=== PATIENT | male | born 1940 | race Caucasian/White ===

== ENCOUNTER → 2016-05-19 | Outpatient (CLI) | payer MEDICARE ==
[2016-05-19 09:45] LABS: ALT 30 U/L (21-72); AST 23 U/L (17-59); Cholesterol 143 mg/dL (<200); HDL Cholesterol 33 mg/dL (40-60); Triglycerides 122 mg/dL (<150)
== END ==
LOC: LABWHC1 08:48
PROVIDERS: ATTEND Internal Medicine Cardiovascular Disease
DX: I25.10 Atherosclerotic heart disease of native coronary artery without angina pectoris (principal); E78.5 Hyperlipidemia, unspecified
CPT/HCPCS: 36415; 80061; 84450; 84460

== ENCOUNTER 2016-07-13 19:16 | Inpatient (IN) | payer MEDICARE ==
[2016-07-13 20:10] LABS: Basophils # (A) 0.1 k/uL (0-0.2); Basophils % (A) 1 %; CH 31.4; CHCM 33.8; Eosinophils # (A) 0.2 k/uL (0-0.7); Eosinophils % (A) 2 %; HCT 45.2 % (39.0-53.0); HDW 2.19; Luc # (Auto) 0.18; Luc % (Auto) 2; Lymphocytes # (A) 2.9 k/uL (1.0-4.8); Lymphocytes % (A) 34 %; MCHC 33.1 g/dL (31.0-37.0); MCV 93.5 fL (80.0-100.0); Mean Platelet Volume 7.1; Monocytes # (A) 0.5 k/uL (0-1.0); Monocytes % (A) 6 %; Neutrophils # (A) 4.7 k/uL (1.3-7.7); Neutrophils % (A) 55 %; RBC 4.83 m/uL (4.30-5.90); RDW 13.2 % (11.5-15.5); WBC 8.6 k/uL (3.8-10.6); WBC (Perox) 8.63
[2016-07-13 20:18] LABS: Partial Thromboplastin Time 22.3 sec (22.0-30.0)
[2016-07-13 20:24] LABS: ALT 24 U/L (21-72); AST 24 U/L (17-59); Alkaline Phosphatase 58 U/L (38-126); Anion Gap 10 mmol/L; Blood Urea Nitrogen 21 mg/dL (9-20); Calcium 9.6 mg/dL (8.4-10.2); Carbon Dioxide 24 mmol/L (22-30); Chloride 107 mmol/L (98-107); Glucose 127 mg/dL (74-99); Magnesium 1.8 mg/dL (1.6-2.3); Non-African American GFR(MDRD) >60 (>60 ml/min/1.73 sqM); Potassium 4.2 mmol/L (3.5-5.1); Sodium 141 mmol/L (137-145); Total Bilirubin 0.8 mg/dL (0.2-1.3); Total Protein 7.3 g/dL (6.3-8.2)
--- NOTE | 2016-07-13 20:27 | XR ---
EXAMINATION TYPE: XR chest 1V DATE OF EXAM: 07/13/2016 8:07 PM COMPARISON: 08/10/2015 HISTORY: Left-sided chest pain TECHNIQUE: Single frontal view of the chest is obtained. FINDINGS: There is no heart failure nor confluent pneumonic infiltrate. There are no hilar masses. C ostophrenic angles are clear. There are chest leads. IMPRESSION: No active cardiopulmonary disease. No change.
[2016-07-13 20:28] LABS: INR 1.1 (<1.1); Prothrombin Time 10.9 sec (9.0-12.0)
--- NOTE | 2016-07-13 20:47 | ED ---
Chest Pain HPI - General Chief Complaint: Chest Pain Stated Complaint: Chest Pain Time Seen by Provider: 07/13/16 19:30 Source: patient Mode of arrival: ambulatory Limitations: no limitations - History of Present Illness Initial Comments: This patient is a 75-year-old man who presents after he had an episode where his vision went dark and he felt lightheaded. The patient reports that he had been at the [employer] this evening. He stood up and started walking across the [employer] to exit and states that his vision went dark and he was not able to see well. He states this affected both eyes equally. It affected the entire visual field. The patient also did briefly have a sensation of pain to his left chest. He states that lasts just a few seconds at a time and that it has come a few times over the past few months. The patient states that the chest pain resolved nearly immediately. The vision also resolved. He states that he then drove himself back to [place] from the [employer] which was in [place]. He states that he did stop and get some fast food. He went home and ate, and then he came here to be evaluated. He states that he feels back at his baseline condition. MD Complaint: other Onset/Timin -: hour(s) Onset: during exertion Pain Location: left chest Pain Radiation: none Severity: mild Quality: sharp Consistency: now resolved, other Improves With: nothing Worsens With: nothing (60 seconds) Treatments Prior to Arrival: none - Related Data Home Medications Medication Instructions Recorded Confirmed Aspirin 81 mg PO DAILY 06/27/15 07/13/16 Nitroglycerin Sl Tabs [Nitrostat] 0.4 mg SUBLINGUAL Q5M PRN 06/27/15 07/13/16 Simvastatin [Zocor] 20 mg PO HS 06/27/15 07/13/16 Cholecalciferol [Vitamin D3] 2,000 unit PO HS 06/28/15 07/13/16 Fiber Tab 1 tab PO DAILY 06/28/15 07/13/16 Multivitamins, Thera [Multivitamin] 1 tab PO HS 06/28/15 07/13/16 Propranolol [Inderal] 20 mg PO BID 06/28/15 07/13/16 Previous Rx's Medication Instructions Recorded Omeprazole [PriLOSEC] 40 mg PO AC-BRKFST #14 cap 06/28/15 Allergies Allergy/AdvReac Type Severity Reaction Status Date / Time No Known Allergies Allergy Verified 07/13/16 20:27 Review of Systems ROS Statement: Those systems with pertinent positive or pertinent negative responses have been documented in the HPI. ROS Other: All systems not noted in ROS Statement are negative. Constitutional: Denies: fever, chills, weakness Eyes: Reports: as per HPI, vision change Respiratory: Denies: cough, dyspnea, wheezes Cardiovascular: Reports: as per HPI, chest pain. Denies: palpitations, dyspnea on exertion, orthopnea, edema, syncope Gastrointestinal: Denies: abdominal pain, nausea, vomiting, diarrhea Musculoskeletal: Denies: back pain Skin: Denies: rash Neurological: Denies: headache, weakness, numbness, paresthesias, confusion, abnormal gait EKG Findings - EKG Comments: EKG Findings:: The 12-lead EKG shows sinus rhythm rate of 60 bpm. The NE interval is 110 ms, consistent with short NE. QRS is 94 ms, QTC 426 ms. 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 - EKG Results: EKG: interpreted by KEISHA, sinus rhythm (Rate 60 bpm) Past Medical History Past Medical History: GERD/Reflux, Hyperlipidemia, Myocardial Infarction ([place]) Additional Past Medical History / Comment(s): aoritc aneusrym. Last Myocardial Infarction Date:: History of Any Multi-Drug Resistant Organisms: None Reported Past Surgical History: Heart Catheterization With Stent, Hernia Repair Additional Past Surgical History / Comment(s): Lt Knee Date of Last Stent Placement:: Past Psychological History: No Psychological Hx Reported Smoking Status: Never smoker Past Alcohol Use History: None Reported Past Drug Use History: None Reported General Exam Limitations: no limitations General appearance: alert, in no apparent distress Head exam: Present: atraumatic, normocephalic Eye exam: Present: normal appearance, PERRL, EOMI. Absent: scleral icterus, conjunctival injection ENT exam: Present: normal oropharynx Neck exam: Present: normal inspection, full ROM Respiratory exam: Present: normal lung sounds bilaterally. Absent: respiratory distress, wheezes, rales, rhonchi, stridor Cardiovascular Exam: Present: regular rate, normal rhythm, normal heart sounds. Absent: systolic murmur, diastolic murmur, rubs, gallop GI/Abdominal exam: Present: soft. Absent: distended, tenderness, guarding, rebound, mass Extremities exam: Present: normal inspection, normal capillary refill. Absent: pedal edema, calf tenderness Neurological exam: Present: alert, oriented X3, CN II-XII intact. Absent: motor sensory deficit Skin exam: Present: warm, dry, intact, normal color. Absent: rash Course Vital Signs 07/13/16 07/13/16 07/13/16 19:19 20:22 20:40 Temperature 97.6 F 97.9 F Pulse Rate 58 L 53 L Pulse Rate [ 59 L Left Sitting] Pulse Rate [ 60 Left Standing] Pulse Rate [ 60 Left Supine] Respiratory 18 18 16 Rate Blood Pressure 169/85 129/69 Blood Pressure 146/74 [Left Arm Sitting] Blood Pressure 148/78 [Left Arm Standing] Blood Pressure 139/71 [Left Arm Supine] O2 Sat by Pulse 100 98 99 Oximetry Disposition Clinical Impression: Transient visual loss of both eyes, Atypical chest pain Disposition: ADMITTED IP TO THIS HOSP Condition: Fair
[2016-07-13] MEDS ORDERED: ASPIRIN 325 MG TAB PO STA (20:51)
[2016-07-13] MEDS ORDERED: NITROGLYCERIN SL TABS 0.4 MG TAB SUBLINGUAL PRN (20:55)
--- NOTE | 2016-07-13 21:12 | CT ---
EXAMINATION TYPE: CT brain wo con DATE OF EXAM: 07/13/2016 8:57 PM COMPARISON: 06/25/2009 HISTORY: Syncopal episode today CT DLP: 1121 mGycm Automated exposure control for dose reduction was used. FINDINGS: There is cerebral cortical atrophy. There is no mass effect nor midline shift. There is no sign of in tracranial hemorrhage. The calvarium is intact. IMPRESSION: Cerebral atrophy. No acute intracranial abnormality. No significant change compared to old exam.
[2016-07-13] MEDS: SODIUM CHLORIDE 0.9% 1,000 ML IV SCH (21:41)
[2016-07-13] MEDS: PROPRANOLOL 20 MG TAB PO SCH (21:42)
[2016-07-13] MEDS: MULTIVITAMINS, THERA 1 EACH TAB PO SCH (21:42)
[2016-07-13] MEDS: CHOLECALCIFEROL 1,000 UNIT TAB PO SCH (21:42)
[2016-07-13] MEDS: DOCUSATE 100 MG CAP PO SCH (21:42)
[2016-07-13] MEDS: ATORVASTATIN 10 MG TAB PO SCH (21:43)
[2016-07-13] MEDS: FAMOTIDINE 20 MG TAB PO SCH (21:43)
[2016-07-14 00:22] VITALS: BMI 24.3
[2016-07-14 08:00] LABS: Cholesterol 123 mg/dL (<200); HDL Cholesterol 32 mg/dL (40-60); Triglycerides 73 mg/dL (<150)
[2016-07-14] MEDS: PANTOPRAZOLE 40 MG TABLET PO SCH (09:23)
[2016-07-14] MEDS: FAMOTIDINE 20 MG TAB PO SCH (09:30)
[2016-07-14] MEDS: PROPRANOLOL 20 MG TAB PO SCH ×2 (09:30→21:26)
[2016-07-14] MEDS: DOCUSATE 100 MG CAP PO SCH ×3 (09:30→23:02)
[2016-07-14] MEDS: ASPIRIN 325 MG TAB PO SCH (09:31)
--- NOTE | 2016-07-14 11:21 | P.CRDCN ---
History of Present Illness Consult date: 07/14/16 Requesting physician: Clif Dutta Consult reason: chest pain Chief complaint: Visual disturbance and near syncope History of present illness: This is a 75-year-old gentleman who follows regularly with Dr. Lopez in the office. He has a history of ischemic heart disease with prior stent placement, hyperlipidemia. He states that [place], on his way walking out, he states that he felt like he lost his vision completely and felt as though he may pass out. He denies any overt dizziness or feeling that things were spinning around him, but does feel that he could've passed out had he not held himself up. Patient also had a pain in the left side of his chest she describes as a sharp pain that lasted one to 2 seconds. He does get these pains off and on. According to the patient, he also feels that when he gets up from a sitting position to a standing position he becomes dizzy and feels like he may pass out. He denies any syncopal episodes, no stroke or seizure in the past. EKGon admission showed a normal sinus rhythm with no acute changes. Chest x-ray did not reveal any active cardiopulmonary disease. At scan of the brain was performed which revealed cerebral atrophy with no acute intracranial abnormality. Reticulocyte Doppler study was performed which is currently pending. CBC normal. Sodium 141 , potassium 4.2, BUN 21, creatinine 1.1, magnesium level I.8, troponins negative 3. Blood pressure on arrival 169/80 with a heart rate in the 50s. Time of my examination this morning, patient denies any dizziness or lightheadedness. No chest discomfort. Past Medical History Past Medical History: GERD/Reflux, Hyperlipidemia, Myocardial Infarction ([place]) Additional Past Medical History / Comment(s): aoritc aneusrym Last Myocardial Infarction Date:: 1998 History of Any Multi-Drug Resistant Organisms: None Reported Past Surgical History: Heart Catheterization With Stent, Hernia Repair Additional Past Surgical History / Comment(s): Lt Knee Past Anesthesia/Blood Transfusion Reactions: No Reported Reaction Date of Last Stent Placement:: 1998 Past Psychological History: No Psychological Hx Reported Smoking Status: Never smoker Past Alcohol Use History: None Reported Past Drug Use History: None Reported - Past Family History Mother Family Medical History: No Reported History Medications and Allergies Home Medications Medication Instructions Recorded Confirmed Type Aspirin 81 mg PO DAILY 06/27/15 07/13/16 History Nitroglycerin Sl Tabs [Nitrostat] 0.4 mg SUBLINGUAL Q5M PRN 06/27/15 07/13/16 History Simvastatin [Zocor] 20 mg PO HS 06/27/15 07/13/16 History Cholecalciferol [Vitamin D3] 2,000 unit PO HS 06/28/15 07/13/16 History Fiber Tab 1 tab PO DAILY 06/28/15 07/13/16 History Multivitamins, Thera [Multivitamin] 1 tab PO HS 06/28/15 07/13/16 History Propranolol [Inderal] 20 mg PO BID 06/28/15 07/13/16 History Allergies Allergy/AdvReac Type Severity Reaction Status Date / Time No Known Allergies Allergy Verified 07/13/16 20:27 Physical Exam Vitals: Vital Signs Temp Pulse Pulse Resp BP BP BP 07/14/16 08:00 52 L 16 119/59 07/14/16 04:00 53 L 18 117/63 07/14/16 00:09 96.2 F L 57 L 18 147/65 07/14/16 00:05 96.2 F L 57 L 18 147/65 07/13/16 23:35 98.0 F 50 L 18 125/59 07/13/16 21:25 69 129/61 Pulse Ox 07/14/16 08:00 98 07/14/16 04:00 07/14/16 00:09 97 07/14/16 00:05 97 07/13/16 23:35 96 07/13/16 21:25 99 Intake and Output 07/13/16 07/14/16 07/14/16 22:59 06:59 14:59 Intake Total 120 Balance 120 Intake: IV 120 Sodium Chloride 0.9% 1, 120 000 ml @ 20 mls/hr IV . Q24H [facility] Rx#:[id number] Other: # Voids 1 1 # Bowel Movements 0 Weight 70.7 kg PHYSICAL EXAMINATION: HEENT: Head is atraumatic, normocephalic. Pupils equal, round. Neck is supple. There is no elevated jugular venous pressure. HEART EXAMINATION: S1 and S2 systolic murmur is heard CHEST EXAMINATION: Lungs are clear to auscultation and precussion. No chest wall tenderness is noted on palpation or with deep breathing. ABDOMEN: Soft, nontender. Bowel sounds are heard. No organomegaly noted. EXTREMITIES: 2+ peripheral pulses with no evidence of peripheral edema and no calf tenderness noted. NEUROLOGIC patient is awake, alert and oriented -3. . Results 07/13/16 20:00 07/13/16 20:00 Cardiac Enzymes 07/14/16 07/14/16 Range/Units 01:50 07:27 Troponin I <0.012 <0.012 (0.000-0.034) ng/mL Lipids 07/14/16 Range/Units 07:27 Triglycerides 73 (<150) mg/dL Cholesterol 123 (<200) mg/dL HDL Cholesterol 32 L (40-60) mg/dL Current Medications Generic Name Dose Route Start Last Admin Trade Name Freq PRN Reason Stop Dose Admin Aspirin 325 mg 07/14/16 09:00 07/14/16 09:31 Aspirin PO 325 mg DAILY [facility] Administration Atorvastatin Calcium 10 mg 07/13/16 21:00 07/13/16 21:43 Lipitor PO 10 mg HS [facility] Administration Cholecalciferol 2,000 unit 07/13/16 21:00 07/13/16 21:42 Vitamin D3 PO 2,000 unit HS [facility] Administration Docusate Sodium 100 mg 07/14/16 00:00 07/14/16 09:30 Colace PO 100 mg Q8HR [facility] Administration Famotidine 20 mg 07/13/16 21:00 07/14/16 09:30 Pepcid PO 20 mg BID [facility] Administration Sodium Chloride 1,000 mls @ 20 mls/hr 07/13/16 21:00 07/13/16 21:41 Saline 0.9% IV 20 mls/hr .Q24H [facility] Administration Multivitamins 1 each 07/13/16 21:00 07/13/16 21:42 Theragran PO 1 each HS [facility] Administration Nitroglycerin 0.4 mg 07/13/16 20:55 Nitrostat SUBLINGUAL Q5M PRN Chest Pain Pantoprazole Sodium 40 mg 07/14/16 07:30 07/14/16 09:23 Protonix PO Not Given AC-BRKFST [facility] Propranolol HCl 20 mg 07/13/16 21:00 07/14/16 09:30 Inderal PO 20 mg BID [facility] Administration Intake and Output 07/13/16 07/14/16 07/14/16 22:59 06:59 14:59 Intake Total 120 Balance 120 Intake: IV 120 Sodium Chloride 0.9% 1, 120 000 ml @ 20 mls/hr IV . Q24H [facility] Rx#:[id number] Other: # Voids 1 1 # Bowel Movements 0 Weight 70.7 kg EKG Interpretations (text) EKG shows normal sinus rhythm with no acute changes. Assessment and Plan Plan: Assessment and Plan #1 symptoms of visual disturbance with near-syncope. CAT scan of the brain did not reveal any acute findings. #2 known history of coronary artery disease with prior stent placement #3 hyperlipidemia #4 GERD #5 atypical chest discomfort, troponins negative 3. EKG did not reveal any significant changes. Plan We will obtain an echocardiogram with Doppler study. We will also request orthostatic blood pressure and heart rate to be performed every shift to rule out any underlying orthostatic hypotension. Patient's chest pain is very atypical in nature, with negative Troponins 3. DNP note has been reviewed, I agree with a documented findings and plan of care. Patient was seen and examined.
--- NOTE | 2016-07-14 11:53 | US ---
EXAMINATION TYPE: US carotid duplex BILAT DATE OF EXAM: 07/14/2016 8:51 AM COMPARISON: NONE CLINICAL HISTORY: Stenosis. Vertigo EXAM MEASUREMENTS: RIGHT: Peak Systolic Velocity (PSV) cm/sec ----- Right CCA: 76.3 ----- Right ICA: 106.9 ----- Right ECA: 80.9 ICA/CCA ratio: 1.4 RIGHT: End Diastole cm/sec ----- Right CCA: 17.6 ----- Right ICA: 28.5 ----- Right ECA: 8.6 LEFT: Peak Systolic Velocity (PSV) cm/sec ----- Left CCA: 55.3 ----- Left ICA: 110.7 ----- Left ECA: 78.2 ICA/CCA ratio: 2.0 LEFT: End Diastole cm/sec ----- Left CCA: 14.7 ----- Left ICA: 30.6 ----- Left ECA: 6.6 VERTEBRALS (direction of flow): Right Vertebral: Antegrade Left Vertebral: Antegrade Atheromatous plaque present within the distribution of the carotid bulb on the left IMPRESSION: Mildly elevated ICA to CCA ratio on the left, no hemodynamic significant stenosis is ar pected however, CTA could be performed for increased sensitivity as indicated, carotid Doppler an ind irect measurement of carotid stenosis
--- NOTE | 2016-07-14 11:54 | P.HPIM ---
History of Present Illness 75-year-old male presented to the emergency room with complaints of near syncopal episode said his vision went dark and he had some chest pressure troponins have been negative 3 visual disturbances cleared Review of Systems Cardiovascular: Reports chest pain Neurological: Reports loss of vision, Reports syncope Past Medical History Past Medical History: GERD/Reflux, Hyperlipidemia, Myocardial Infarction ([place]) Additional Past Medical History / Comment(s): aoritc aneusrym Last Myocardial Infarction Date:: 1998 History of Any Multi-Drug Resistant Organisms: None Reported Past Surgical History: Heart Catheterization With Stent, Hernia Repair Additional Past Surgical History / Comment(s): Lt Knee Past Anesthesia/Blood Transfusion Reactions: No Reported Reaction Date of Last Stent Placement:: 1998 Past Psychological History: No Psychological Hx Reported Smoking Status: Never smoker Past Alcohol Use History: None Reported Past Drug Use History: None Reported - Past Family History Mother Family Medical History: No Reported History Medications and Allergies Home Medications Medication Instructions Recorded Confirmed Type Aspirin 81 mg PO DAILY 06/27/15 07/13/16 History Nitroglycerin Sl Tabs [Nitrostat] 0.4 mg SUBLINGUAL Q5M PRN 06/27/15 07/13/16 History Simvastatin [Zocor] 20 mg PO HS 06/27/15 07/13/16 History Cholecalciferol [Vitamin D3] 2,000 unit PO HS 06/28/15 07/13/16 History Fiber Tab 1 tab PO DAILY 06/28/15 07/13/16 History Multivitamins, Thera [Multivitamin] 1 tab PO HS 06/28/15 07/13/16 History Propranolol [Inderal] 20 mg PO BID 06/28/15 07/13/16 History Allergies Allergy/AdvReac Type Severity Reaction Status Date / Time No Known Allergies Allergy Verified 07/13/16 20:27 Physical Exam Vitals: Vital Signs Temp Pulse Pulse Resp BP BP BP 07/14/16 08:00 52 L 16 119/59 07/14/16 04:00 53 L 18 117/63 07/14/16 00:09 96.2 F L 57 L 18 147/65 07/14/16 00:05 96.2 F L 57 L 18 147/65 07/13/16 23:35 98.0 F 50 L 18 125/59 07/13/16 21:25 69 129/61 Pulse Ox 07/14/16 08:00 98 05/11/17 04:00 07/14/16 00:09 97 07/14/16 00:05 97 07/13/16 23:35 96 07/13/16 21:25 99 Intake and Output 07/13/16 07/14/16 07/14/16 22:59 06:59 14:59 Intake Total 120 Balance 120 Intake: IV 120 Sodium Chloride 0.9% 1, 120 000 ml @ 20 mls/hr IV . Q24H [facility] Rx#:[id number] Other: # Voids 1 1 # Bowel Movements 0 Weight 70.7 kg - Constitutional General appearance: average body habitus - EENT Eyes: PERRLA Ears: bilateral: normal - Neck Neck: normal ROM Carotids: negative: upstroke normal - Respiratory Respiratory: bilateral: CTA - Cardiovascular Rhythm: regular - Gastrointestinal General gastrointestinal: soft - Integumentary Integumentary: normal - Neurologic Neurologic: CNII-XII intact - Psychiatric Patient states he does have some memory loss with face recognition and short- term memory alert and orientated at this time Psychiatric: A&O x's 3, appropriate affect, intact judgment & insight Results CBC & Chem 7: 07/13/16 20:00 07/13/16 20:00 Labs: Abnormal Lab Results - Last 24 Hours (Table) 07/14/16 Range/Units 07:27 HDL Cholesterol 32 L (40-60) mg/dL Chest x-ray: report reviewed CT Scan - head: report reviewed Thrombosis Risk Factor Assmnt - Choose All That Apply Any of the Below Risk Factors Present?: No Other Risk Factors: Yes Each Risk Factor Represents 3 Points: Age 75 years or older Thrombosis Risk Factor Assessment Total Risk Factor Score: 3 Thrombosis Risk Factor Assessment Level: Moderate Risk Assessment and Plan Plan: Assessment Visual disturbance transient Atypical chest pain troponins negative 3 History of GERD Hyperlipidemia History of coronary artery disease with [place] and has had stents History of aortic aneurysm Plan Cardiology consultation Neurology consultation
--- NOTE | 2016-07-14 12:42 | ECHOF ---
Referral Reason:Thrombus MEASUREMENTS -------- HEIGHT: 170.2 cm WEIGHT: 70.3 kg BP: 117/63 RVIDd: 2.7 cm (< 3.3) IVSd: 0.9 cm (0.6 - 1.1) LVIDd: 5.3 cm (3.9 - 5.3) LVPWd: 1.0 cm (0.6 - 1.1) IVSs: 1.1 cm LVIDs: 4.3 cm LVPWs: 1.2 cm LA Diam: 3.3 cm (2.7 - 3.8) LAESV Index (A-L): 26.18 ml/m Ao Diam: 3.7 cm (2.0 - 3.7) AV Cusp: 2.2 cm (1.5 - 2.6) LA Diam: 3.5 cm (2.7 - 3.8) MV EXCURSION: 12.842 mm (> 18.000) MV EF SLOPE: 91 mm/s (70 - 150) EPSS: 0.9 cm MV E Richard: 0.72 m/s MV DecT: 187 ms MV A Richard: 0.64 m/s MV E/A Ratio: 1.14 AR PHT: 732 ms RAP: 5.00 mmHg RVSP: 35.33 mmHg FINDINGS -------- Sinus rhythm. This was a technically adequate study. Left ventricular wall thickness is normal. Overall left ventricular systolic function is low-normal with, an EF between 50 - 55 %. The right ventricle is normal in size and function. Normal LA size by volume 22+/-6 ml/m2. The right atrium is normal in size. Aortic valve is trileaflet and is mildly thickened. There is lqeg-fe-epegifjo aortic regurgitation. There is no evidence of aortic stenosis. The mitral valve leaflets are mildly thickened. Arli-mo-chlgnpeo mitral regurgitation is present. Mild tricuspid regurgitation present. There is no evidence of pulmonary hypertension. The right ventricular systolic pressure, as measured by Doppler, is 35.33mmHg. Pulmonic valve appears structurally normal. The aortic root size is normal. There is no pericardial effusion. CONCLUSIONS -------- 1. Sinus rhythm. 2. The aortic root size is normal. 3. There is no pericardial effusion. 4. Overall left ventricular systolic function is low-normal with, an EF between 50 - 55 %. 5. Normal LA size by volume 22+/-6 ml/m2. 6. Aortic valve is trileaflet and is mildly thickened. 7. There is egtu-zq-jakkyslb aortic regurgitation. 8. The mitral valve leaflets are mildly thickened. 9. Mild tricuspid regurgitation present. 10. There is no evidence of pulmonary hypertension. 11. The right ventricular systolic pressure, as measured by Doppler, is 35.33mmHg. CLOTHING PATTERN PREPARER: Deng Paez RDCS
[2016-07-14] MEDS ORDERED: RX INFO: IV CONTRAST WAS GIVEN 1 EACH MISC MISCELLANE PRN (19:37)
--- NOTE | 2016-07-14 20:49 | CT ---
EXAMINATION TYPE: CT angio neck DATE OF EXAM: 07/14/2016 8:17 PM COMPARISON: NONE HISTORY: Syncopal episode CT DLP: 265.3 mGycm Automated exposure control for dose reduction was used. TECHNIQUE: Performed with IV Contrast, patient injected with 65 mL of Omnipaque 350. There are 3-D post processed images.. FINDINGS: There is some plaque and calcification on the posterior wall of the left carotid artery bifurcation w ith narrowing of the distal common carotid artery close to 50%. The right carotid artery bifurcation is widely patent. There is bilateral flow in the vertebral arteries. There is normal branching pattern of the great vessels on the aortic arch. The proximal carotid arter ies are widely patent. The distal internal carotid arteries are widely patent.. There is no evidence of carotid dissection. 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 THERE IS NORMAL APPEARANCE OF THE RI GHT CAROTID ARTERY.
[2016-07-14] MEDS: MULTIVITAMINS, THERA 1 EACH TAB PO SCH (21:26)
[2016-07-14] MEDS: CHOLECALCIFEROL 1,000 UNIT TAB PO SCH (21:26)
[2016-07-14] MEDS: ATORVASTATIN 10 MG TAB PO SCH (21:27)
[2016-07-14] MEDS: SODIUM CHLORIDE 0.9% 1,000 ML IV SCH (21:27)
[2016-07-15 02:39] VITALS: RESP 18
[2016-07-15] MEDS: PANTOPRAZOLE 40 MG TABLET PO SCH (06:35)
--- NOTE | 2016-07-15 07:26 | CONS ---
DATE OF CONSULTATION: 07/14/2016 CHIEF COMPLAINT: Presyncopal spell. HISTORY OF PRESENT ILLNESS: The patient is a pleasant 75year old male who is being evaluated by the neurology service per the request of Dr. Dutta for presyncopal episode. The patient states that he was in the casino in [place] and while he was walking towards the exit, he became quite dizzy and he describes the dizziness as a lightheaded sensation. He also recalls a sudden onset of visual loss involving both eyes. His symptoms lasted several seconds and resolved spontaneously. [place] to [facility] Emergency Room. As mentioned above, his symptoms only lasted several seconds. He denies any previous symptoms similar to this. The patient states that he also felt some chest pain when the symptoms occurred, but this has also resolved. A CT scan of the brain was done in the emergency room which showed generalized atrophy. His carotid Doppler showed no hemodynamically significant stenosis but there was an increase in the ICA to CCA ratio. His comprehensive metabolic profile, CBC, and fasting lipid panel were reviewed and were all within normal limits. At the time of my evaluation, the patient is lying in his bed and appears to be in no acute distress. He denies any recurrence of his symptoms since his admission. He has been having some bradycardia since arriving to the medical floor reaching the low 50s. Cardiology has been consulted. PAST MEDICAL HISTORY: Gastroesophageal reflux disease, dyslipidemia, history of myocardial infarction, history of aortic aneurysm, history of coronary artery stent placements, and hernia repair. SOCIAL HISTORY: He denies any tobacco, alcohol or drug use. FAMILY HISTORY: Noncontributory. HOME MEDICATIONS: Reviewed in the chart. ALLERGIES: No known drug allergies. REVIEW OF SYSTEMS: CONSTITUTIONAL: Negative. EYES: As mentioned above. ENT: As mentioned above. CARDIOVASCULAR: As mentioned above. RESPIRATORY: Negative. NEUROLOGICAL: As mentioned above. He denies any lateralizing numbness or weakness. GASTROINTESTINAL: Positive for occasional heartburn. GENITOURINARY: Negative. PSYCHIATRIC: Negative. ENDOCRINE: Negative. MUSCULOSKELETAL: Positive for occasional joint pain. DERMATOLOGICAL: Negative. PHYSICAL EXAM: Vital signs show a temperature of 96.2, pulse 52, respirations 16, blood pressure 119/59. GENERAL APPEARANCE: The patient is a thin, elderly male who appears to be in no acute distress. HEENT: Normocephalic, atraumatic, no facial asymmetry is seen. Extraocular muscles are intact. Neck is supple with no masses felt. CARDIOVASCULAR: Bradycardic rate with a normal rhythm. ABDOMEN: Nontender, nondistended. Extremities showed no edema or clubbing. NEUROLOGICAL EXAM: The patient is alert, aware, and oriented x3. Speech and language are normal. Strength is full in all 4 extremities. Sensory exam was normal to light touch in all 4 extremities. Cranial nerve testing showed no facial asymmetry. No tremors or seizure-like activity is noticed. IMPRESSION: 1. Presyncopal episode with dizziness. 2. Transient visual changes. 3. Possible carotid stenosis. 4. Bradycardia. 5. Coronary artery disease with history of stent placement. RECOMMENDATIONS: The patient did have a presyncopal episode and this is likely cardiovascular in etiology. He has been having bradycardia since his admission and his pulse is 52 at the time of my evaluation. Cardiology has been consulted. Continue telemetry monitoring. Although his carotid Doppler showed no hemodynamically significant stenosis, there were elevated velocities seen and for this I will order a CT angiogram of the neck to check for more distal stenosis that could not be captured by the carotid Doppler. Continue aspirin and Lipitor. An EEG has been ordered. Continue neuro checks. I will continue to follow with you. Further recommendations to follow. Thank you for allowing me to participate in the care of your patient. If you have any questions, please feel free to contact me. KARRIE
[2016-07-15] MEDS: DOCUSATE 100 MG CAP PO SCH (10:06)
[2016-07-15] MEDS: PROPRANOLOL 20 MG TAB PO SCH (10:07)
[2016-07-15] MEDS: ASPIRIN 325 MG TAB PO SCH (10:07)
[2016-07-15 10:10] VITALS: TEMP 96.6
--- NOTE | 2016-07-15 14:21 | P.PN ---
Subjective Principal diagnosis: Near syncope This is a 75-year-old gentleman who follows regularly with Dr. Lopez in the office. He has a history of ischemic heart disease with prior stent placement, hyperlipidemia. He states that he was [place] the [place] in [place] of yesterday, on his way walking out, he states that he felt like he lost his vision completely and felt as though he may pass out. He denies any overt dizziness or feeling that things were spinning around him, but does feel that he could've passed out had he not held himself up. He denies any syncopal episodes, no stroke or seizure in the past. EKGon admission showed a normal sinus rhythm with no acute changes. Chest x-ray did not reveal any active cardiopulmonary disease. At scan of the brain was performed which revealed cerebral atrophy with no acute intracranial abnormality. Echocardiogram with Doppler study was performed which revealed an ejection fraction of 50-55% with mild to moderate aortic regurgitation. CTA of the neck was performed which reveals close to 50% stenosis at the left carotid artery bifurcation involving the aortic origin of the internal carotid artery and distal common carotid artery. Normal appearance of the right carotid artery. CT the brain did not reveal any acute intracranial abnormality. Objective - Vital Signs Vital signs: Vital Signs Temp 96.6 F L 07/15/16 08:00 Pulse 54 L 07/15/16 08:00 Resp 18 07/15/16 04:00 BP 170/70 07/15/16 08:00 Pulse Ox 97 07/15/16 08:00 Intake & Output 07/14/16 07/15/16 07/15/16 18:59 06:59 18:59 Intake Total 240 120 Output Total 275 300 Balance -275 -60 120 Weight 70.7 kg 69.1 kg Intake: IV 240 Sodium Chloride 0.9% 1, 240 000 ml @ 20 mls/hr IV . Q24H CHIQUITA Rx#:[id number] Oral 120 Output: Urine 275 300 Other: # Voids 1 2 1 # Bowel Movements 0 - Exam PHYSICAL EXAMINATION: HEENT: Head is atraumatic, normocephalic. Pupils equal, round. Neck is supple. There is no elevated jugular venous pressure. HEART EXAMINATION: S1 and S2 systolic murmur is heard CHEST EXAMINATION: Lungs are clear to auscultation and precussion. No chest wall tenderness is noted on palpation or with deep breathing. ABDOMEN: Soft, nontender. Bowel sounds are heard. No organomegaly noted. EXTREMITIES: 2+ peripheral pulses with no evidence of peripheral edema and no calf tenderness noted. NEUROLOGIC patient is awake, alert and oriented -3. - Labs CBC & Chem 7: 07/13/16 20:00 07/13/16 20:00 Assessment and Plan Plan: Assessment and Plan #1 symptoms of visual disturbance with near-syncope. CAT scan of the brain did not reveal any acute findings. CTA of the neck revealed close to 50% stenosis at the left carotid artery, normal-appearing right carotid artery. #2 known history of coronary artery disease with prior stent placement #3 hyperlipidemia #4 GERD #5 atypical chest discomfort, troponins negative 3. EKG did not reveal any significant changes. Plan EchoCardiogram with Doppler study revealed an ejection fraction of 50-55% with mild to moderate AI. Patient continues to have a heart rate in the low 50s which may be contributing to some of the symptoms, for this reason we will decrease his dose of beta shaheed and half. He does have a follow-up appointment with Dr. Lopez in the office on August 10 wich he has been instructed to keep. DNP note has been reviewed, I agree with a documented findings and plan of care. Patient was seen and examined.
[2016-07-15 15:12] VITALS: BP 127/61; PULSE 50
--- NOTE | 2016-07-15 20:34 | PN ---
CHIEF COMPLAINT: Pre-syncopal spell. HISTORY OF PRESENT ILLNESS: This is a pleasant 75-year-old male continuing to be evaluated by the neurology service for a pre-syncopal episode. He had an episode of dizziness and lightheadedness and possible visual loss in both eyes. It lasted for several seconds. He denies any symptoms previous to this. A CT scan of the brain showed generalized atrophy. Carotid Doppler showed no hemodynamically significant stenosis but an increased ICA:CCA ratio. A subsequent CTA showed 50% occlusion of the left carotid bifurcation. No stenosis on the right. Cardiology was consulted, and they have recommended reduction of his propranolol that he takes for tremors. He was noted to have some bradycardic episodes, likely contributing to his symptoms. Upon my exam, he is resting comfortably in bed in no acute distress. His symptoms have resolved. PHYSICAL EXAM: VITAL SIGNS: Temperature 96.2, pulse 52, respirations 16, blood pressure 119/59. GENERAL APPEARANCE: This is a thin elderly male in no acute distress. HEENT: Normocephalic, atraumatic. No facial asymmetry. Extraocular muscles are intact. Neck is supple without masses. CARDIOVASCULAR: Bradycardic rate with normal rhythm. ABDOMEN: Nontender, nondistended. NEUROLOGICAL EXAM: He is alert, awake and oriented x3. Speech and language are normal. Strength is full in all 4 extremities. There is no sensory deficit. No tremors or seizure-like activities are seen. IMPRESSION: 1. Pre-syncopal episode with dizziness. 2. Transient visual loss. 3. Carotid stenosis. 4. Bradycardia. 5. Coronary artery disease. 6. Benign essential tremors. RECOMMENDATION: This episode was likely cardiovascular in nature. Reduction of his Inderal should help with symptoms significantly. He may be placed on an alternative medicine to control his tremors; recommend Mysoline. He will follow up with Dr. Fuller. Continue aspirin and Lipitor. Barring any unforeseen abnormalities on his EEG, he is cleared from a neurological standpoint. I performed a history and physical examination of this patient and discussed the same with the dictator. I agree with the dictator's note. Any additional findings/opinions, etc. will be noted.
[2016-07-15] MEDS ORDERED: PROPRANOLOL 10 MG TAB PO SCH (21:00)
--- NOTE | 2016-07-16 11:22 | EEG ---
DATE OF SERVICE: 07/15/2016 REASON FOR TESTING: Dizziness and presyncopal episodes. AGE: 75Y DESCRIPTION OF THE PROCEDURE: This EEG was performed using a 21-channel digital electroencephalograph, following the international 10 - 20 system. DESCRIPTION OF THE RECORDING: From the beginning of the tracing, and with the patient's eyes closed, the background rhythm was mostly consisting of 8 to 9 Hz alpha frequency in the posterior occipital leads. No obvious asymmetry is seen. Photic stimulation was performed with a minimal driving response seen. No pathological waves were elicited. Occasional muscle and movement artifacts are seen. Hyperventilation was not performed. The patient remains awake throughout the tracing. No epileptiform discharges were seen. His EKG lead showed a regular rate and rhythm. INTERPRETATION: This awake EEG can be considered within normal limits. There was no asymmetry seen. No epileptiform discharges were noticed. The absence of epileptiform discharges does not rule out the diagnosis of epilepsy, therefore, clinical correlation is recommended.
--- NOTE | 2016-07-20 09:00 | DS ---
DATE OF ADMISSION: 07/13/2016 DATE OF DISCHARGE: 07/15/2016 DISCHARGE DIAGNOSES: 1. Near syncope with dizziness and visual distress due to cardiogenic, possibly due to bradycardia ( ). 2. Atypical chest pain. Rule out acute coronary artery syndrome. 3. Gastroesophageal reflux disease. 4. Hyperlipidemia. 5. History of coronary artery disease with myocardial infarction and had stents in the past. 6. History of an aortic aneurysm. HOSPITAL COURSE: Patient is a 75-year-old male, was admitted to the hospital with complaints of near syncope and dizziness and visual disturbance. It lasted for several seconds, no previous history of CVA in the past. CT of the brain showed generalized atrophy. Carotid duplex showed no hemodynamically significant stenosis but increased ICA to CCA ratio. Subsequent CT angiogram of the neck showed 50% occlusion of the left carotid bifurcation. No stenosis on the right. Cardiology has been consulted and due to bradycardia, propranolol dose has been reduced to 10 mg b.i.d. ( ) during the hospital stay, patient denied any evidence of nausea, vomiting, abdominal pain. No dizziness or lightheadedness. No further syncopal episodes noted in the hospital. The patient has been taking propranolol for essential tremors. Patient was advised to follow with Neurology and Primary Care Physician for outside medications for tremors if he continues to have symptoms. Otherwise, the patient is asymptomatic now and will be discharged home in stable condition. DISCHARGE PHYSICAL EXAMINATION: A 75-year-old male lying in the bed, awake, alert and oriented x3. Appears to be in no apparent distress. VITALS: Blood pressure is 127/61, pulse is 58, respiratory rate is 16, temperature afebrile, pulse ox 98% on room air. HEENT: Atraumatic, normocephalic. Neck is supple, no JVD. CVS EXAM: S1, S2 heard. No murmurs, no gallop, no rub. LUNGS: Bilateral air entry is present, no wheezing. No crackles, nonlabored breathing. ABDOMEN: Soft, nontender, bowel sounds are heard. WEB CONTENT WRITER: Awake, alert, oriented x3. No focal deficit. EXTREMITIES: No edema. Pulses palpable bilaterally, no clubbing or cyanosis. PSYCHIATRIC: Cooperative. LABORATORY DATA: Reviewed. The LDL is 76, HDL 32. Troponin x3 negative. CONSULTATION: Cardiology consultation and Neurology consultation. TESTS AND PROCEDURES: CT head, CT angio of the neck and carotid duplex as well as 2-D echocardiogram and chest x-ray and EKG which shows sinus bradycardia. Discharge medications include: 1. Aspirin 81 mg p.o. daily. 2. Nitroglycerin 0.4 mg sublingual q.5 minutes p.r.n. for chest pain. 3. Zocor 20 mg p.o. at bedtime. 4. Vitamin D3 two thousand units p.o. at bedtime. 5. Lortab 1 tablet p.o. daily. 6. Multivitamins 1 tablet p.o. at bedtime. Omeprazole 40 mg a.c. breakfast. 7. Propranolol 10 mg p.o. b.i.d. Patient will be discharged home in a stable condition. Heart-healthy diet and home with self-care. Follow with Dr. Clif Dutta in 1 to [address] Fuller, follow with Dr. Lopez. Time taken more than 35 minutes in counseling and coordination of care.
== END 2016-07-15 16:38 | disposition home or self-care (01) | DRG 312 ==
LOC: EC 19:16 → 6SEL 20:56
PROVIDERS: ADMIT Family Medicine; ATTEND Family Medicine
DX: R55 Syncope and collapse (principal); R00.1 Bradycardia, unspecified; I35.1 Nonrheumatic aortic (valve) insufficiency; I65.22 Occlusion and stenosis of left carotid artery; H53.129 Transient visual loss, unspecified eye; R07.89 Other chest pain; E78.5 Hyperlipidemia, unspecified; K21.9 Gastro-esophageal reflux disease without esophagitis; G25.0 Essential tremor; I25.2 Old myocardial infarction; I25.10 Atherosclerotic heart disease of native coronary artery without angina pectoris; Z95.5 Presence of coronary angioplasty implant and graft; Z86.79 Personal history of other diseases of the circulatory system; Z79.82 Long term (current) use of aspirin; Z79.899 Other long term (current) drug therapy
CPT/HCPCS: 36415; 70450; 70498; 71010; 80053; 80061; 83735; 84484; 85025; 85610; 85730; 93005; 93306; 93880; 95819; 99285

== ENCOUNTER → 2017-05-25 | Outpatient (CLI) | payer MEDICARE ==
[2017-05-25 09:58] LABS: ALT 22 U/L (21-72); AST 23 U/L (17-59); Cholesterol 141 mg/dL (<200); HDL Cholesterol 39 mg/dL (40-60); LDL Cholesterol,Calculated 87 mg/dL (0-99); Triglycerides 75 mg/dL (<150)
== END | disposition home or self-care (01) ==
LOC: LABWHC1 09:09
PROVIDERS: ATTEND Internal Medicine Cardiovascular Disease
DX: I25.10 Atherosclerotic heart disease of native coronary artery without angina pectoris (principal); E78.5 Hyperlipidemia, unspecified
CPT/HCPCS: 36415; 80061; 84450; 84460

== ENCOUNTER 2018-08-25 20:16 | Emergency (ER) | payer MEDICARE ==
[2018-08-25 20:24] VITALS: RESP 18; TEMP 98.6
--- NOTE | 2018-08-25 21:02 | ED ---
General Adult HPI - General Chief complaint: Recheck/Abnormal Lab/Rx Stated complaint: Hiccups Time Seen by Provider: 08/25/18 20:41 Source: patient Mode of arrival: ambulatory Limitations: no limitations - History of Present Illness Initial comments: Patient is a 77-year-old male presenting to emergency Department with complaints of hiccups 2 days. Patient admits to associated sore throat, slight cough. Patient's states the last time he had hiccups for 2 weeks and that was 2 years ago and he had pneumonia. Patient has prescription for Chlorpromazine for hiccups that he tried yesterday without success. Patient has been having hard time sleeping due to the hiccups. Patient denies chest pains, shortness of breath, nausea, vomiting, and abdominal pain. No other complaints at this time. - Related Data Home Medications Medication Instructions Recorded Confirmed Aspirin 81 mg PO DAILY 06/27/15 02/23/17 Nitroglycerin Sl Tabs [Nitrostat] 0.4 mg SUBLINGUAL Q5M PRN 06/27/15 02/23/17 Simvastatin [Zocor] 20 mg PO HS 06/27/15 02/23/17 Cholecalciferol [Vitamin D3 (25 2,000 unit PO HS 06/28/15 02/23/17 Mcg = 1000 Iu)] Fiber Tab 1 tab PO DAILY 06/28/15 02/23/17 Multivitamins, Thera [Multivitamin 1 tab PO HS 06/28/15 02/23/17 (formulary)] Previous Rx's Medication Instructions Recorded Omeprazole [PriLOSEC] 40 mg PO AC-BRKFST #14 cap 06/28/15 Propranolol [Inderal] 10 mg PO BID #60 tab 07/15/16 Amoxicillin/Potassium Clav 1 tab PO Q12HR #14 tab 02/17/17 [Augmentin 875-125 Tablet] Amoxicillin/Potassium Clav 1 tab PO Q12HR 10 Days #20 tab 02/23/17 [Augmentin 500-125 Tablet] chlorproMAZINE HCL [ChlorproMAZINE 25 mg PO Q4HR PRN #30 tablet 08/25/18 HCl] Allergies Allergy/AdvReac Type Severity Reaction Status Date / Time No Known Allergies Allergy Verified 08/25/18 20:22 Review of Systems ROS Statement: Those systems with pertinent positive or pertinent negative responses have been documented in the HPI. ROS Other: All systems not noted in ROS Statement are negative. Past Medical History Past Medical History: GERD/Reflux, Hyperlipidemia, Myocardial Infarction ([place]) Additional Past Medical History / Comment(s): aortic aneurysm-dr. shipley, hand tremors, tripped & fell 12-15, fx. nose & lip laceration Last Myocardial Infarction Date:: 1998 History of Any Multi-Drug Resistant Organisms: None Reported Past Surgical History: Heart Catheterization With Stent, Hernia Repair Additional Past Surgical History / Comment(s): Lt Knee arthroscopy Past Anesthesia/Blood Transfusion Reactions: No Reported Reaction Date of Last Stent Placement:: 1998 Past Psychological History: No Psychological Hx Reported Smoking Status: Never smoker Past Alcohol Use History: None Reported Past Drug Use History: None Reported - Past Family History Mother Family Medical History: No Reported History General Exam - General Exam Comments Initial Comments: GENERAL: Well-appearing, well-nourished and in no acute distress. Patient is hiccuping. HEAD: Atraumatic, normocephalic. EYES: Pupils equal round and reactive to light, extraocular movements intact, sclera anicteric, conjunctiva are normal. ENT: TMs normal, nares patent, oropharynx clear without exudates. Moist mucous membranes. NECK: Normal range of motion, supple without lymphadenopathy or JVD. LUNGS: Breath sounds clear to auscultation bilaterally and equal. No wheezes rales or rhonchi. HEART: Regular rate and rhythm without murmurs, rubs or gallops. ABDOMEN: Soft, nontender, normoactive bowel sounds. No guarding, no rebound. No masses appreciated. : Deferred EXTREMITIES: Normal range of motion, no pitting or edema. No clubbing or cyanosis. NEUROLOGICAL: Cranial nerves II through XII grossly intact. Normal speech, normal gait. PSYCH: Normal mood, normal affect. SKIN: Warm, Dry, normal turgor, no rashes or lesions noted. Limitations: no limitations Course Vital Signs 08/25/18 20:21 Temperature 98.6 F Pulse Rate 66 Respiratory 18 Rate Blood Pressure 119/68 O2 Sat by Pulse 98 Oximetry Medical Decision Making - Medical Decision Making Patient is a 77-year-old male with complaints of hiccups 2 days. Patient states he has had this before about 3 years ago where he had hiccups for 2 weeks straight. He did have pneumonia at that time. Patient admits to having a sore throat with slight cough but no other symptoms at this time. Patient is afebrile. Chest x-ray was within normal limits. No signs of pneumonia or any other acute abnormalities. Patient was given Reglan and Ativan in attempt to stop the hiccups. Patient states his hiccups have stopped. Patient will be discharged home and will follow up with PCP on Monday if they return. Patient was okay with this decision. Case discussed with . Disposition Clinical Impression: Hiccups Disposition: HOME SELF-CARE Condition: Stable Instructions (If sedation given, give patient instructions): Hiccups (ED) Additional Instructions: Please return to the Emergency Department if symptoms worsen or any other concerns. Follow up with PCP on Monday if hiccups returned. Prescriptions: chlorproMAZINE HCL [ChlorproMAZINE HCl] 25 mg PO Q4HR PRN #30 tablet PRN Reason: Per Protocol Is patient prescribed a controlled substance at d/c from ED?: No Referrals: Clif Dutta MD [Primary Care Provider] - 1-2 days
--- NOTE | 2018-08-25 21:12 | XR ---
EXAMINATION TYPE: XR chest 2V DATE OF EXAM: 08/25/2018 COMPARISON: 07/13/2016 HISTORY: Hiccups TECHNIQUE: Frontal and lateral views of the chest are obtained. FINDINGS: Heart and mediastinum are normal. Lungs are clear. Diaphragm is normal. Bony thorax appear s normal. IMPRESSION: Normal chest. No change.
[2018-08-25] MEDS ORDERED: METOCLOPRAMIDE 10 MG TAB PO STA (21:34)
[2018-08-25] MEDS ORDERED: LORazepam 1 MG TAB PO STA (22:07)
[2018-08-25 23:15] VITALS: BP 123/68; PULSE 72
[2018-08-26] MEDS ORDERED: METOCLOPRAMIDE 10 MG TAB PO SCH (07:30)
== END 2018-08-25 23:12 | disposition home or self-care (01) ==
LOC: EC 20:16
DX: R06.6 Hiccough (principal); R05 Cough; K21.9 Gastro-esophageal reflux disease without esophagitis; I25.2 Old myocardial infarction; Z79.82 Long term (current) use of aspirin; Z79.899 Other long term (current) drug therapy; Z95.5 Presence of coronary angioplasty implant and graft
CPT/HCPCS: 71046; 99283

== ENCOUNTER → 2018-10-19 | Outpatient (CLI) | payer MEDICARE ==
--- NOTE | 2018-10-20 10:20 | CT ---
EXAMINATION TYPE: CT soft tissue neck w con DATE OF EXAM: 10/19/2018 COMPARISON: None HISTORY: Throat pain and tightness. CT DLP: 490 mGycm CONTRAST: CT scan of the neck is performed with IV Contrast, patient injected with 80ml mL of Isovue 300. Contrast enhanced CT of the neck was performed from the skull base through the lung apices. AIRWAY: The supraglottic, glottic, and subglottic portions of the airway appear patent and free of mass. SALIVARY GLANDS: The submandibular and parotid glands are free of mass or inflammatory process. THYROID GLAND: No nodules or masses seen. LYMPH NODES: No adenopathy seen greater than 1cm. LUNG APICES: No nodule or mass is seen. OTHER: Vascular structures are patent. No significant degenerative change of the cervical spine. N o abscess seen. IMPRESSION: No distinct abnormality to account for the patient's symptoms.
== END | disposition home or self-care (01) ==
LOC: RADCTMAIN 16:20
PROVIDERS: ATTEND Otolaryngology
DX: R07.0 Pain in throat (principal)
CPT/HCPCS: 82565; 84520; 70491; 36415; Q9967

== ENCOUNTER → 2019-11-13 | Outpatient (CLI) | payer MEDICARE ==
[2019-11-13 10:25] LABS: Basophils % (A) 1 %; Eosinophils # (A) 0.2 k/uL (0-0.7); Eosinophils % (A) 3 %; HCT 41.2 % (39.0-53.0); Lymphocytes # (A) 1.9 k/uL (1.0-4.8); Lymphocytes % (A) 28 %; MCH 30.1 pg (25.0-35.0); MCHC 31.6 g/dL (31.0-37.0); MCV 95.2 fL (80.0-100.0); Mean Platelet Volume 7.2; Monocytes # (A) 0.4 k/uL (0-1.0); Monocytes % (A) 6 %; Neutrophils # (A) 4.2 k/uL (1.3-7.7); Neutrophils % (A) 61 %; Platelet Count 227 k/uL (150-450); RBC 4.33 m/uL (4.30-5.90); RDW 12.8 % (11.5-15.5); WBC 6.9 k/uL (3.8-10.6)
[2019-11-13 17:53] LABS: African American GFR (CKD) 65.3 (60.0-200.0); Albumin 3.7 g/dL (3.80-4.90); Albumin/Globulin Ratio 1.61 (1.60-3.17); BUN/Creat Ratio 14.17 Ratio (12.00-20.00); Calcium 9.2 mg/dL (8.7-10.3); Chol/HDL Ratio 3.97; Globulin 2.3 g/dL (1.6-3.3); Non-African American GFR(CKD) 56.4 (60.0-200.0); Potassium 4.4 mmol/L (3.5-5.5); Total Bilirubin 0.5 mg/dL (0.3-1.2)
== END | disposition home or self-care (01) ==
LOC: LABWHC1 09:07
PROVIDERS: ATTEND Family Medicine
DX: E78.5 Hyperlipidemia, unspecified (principal)
CPT/HCPCS: 36415; 80053; 80061; 84439; 84443; 85025

== ENCOUNTER → 2020-04-07 | Outpatient (CLI) | payer MEDICARE ==
[2020-04-07 15:00] LABS: Basophils # (A) 0.06 X 10*3/uL (0.00-0.10); Basophils % (A) 0.9 %; Eosinophils # (A) 0.23 X 10*3/uL (0.04-0.35); Eosinophils % (A) 3.3 %; HCT 40.3 % (39.6-50.0); HGB 13.4 g/dL (13.0-17.0); Lymphocytes # (A) 2.13 X 10*3/uL (0.90-5.00); Lymphocytes % (A) 30.9 %; MCH 31.2 pg (27.0-32.0); MCHC 33.3 g/dL (32.0-37.0); MCV 93.7 fL (80.0-97.0); Mean Platelet Volume 10.9 fL (9.5-12.2); Monocytes # (A) 0.59 X 10*3/uL (0.20-1.00); Monocytes % (A) 8.6 %; Neutrophils # (A) 3.87 X 10*3/uL (1.80-7.70); Neutrophils % (A) 56.2 %; Platelet Count 208 X 10*3/uL (140-440); WBC 6.89 X 10*3/uL (4.50-10.00)
[2020-04-07 15:20] LABS: African American GFR (CKD) 59.3 (60.0-200.0); Albumin 3.9 g/dL (3.80-4.90); Albumin/Globulin Ratio 1.95 (1.60-3.17); BUN/Creat Ratio 13.08 Ratio (12.00-20.00); Calcium 9.1 mg/dL (8.7-10.3); Chol/HDL Ratio 3.47; LDL Cholesterol,Calculated 71.8 mg/dL (0.0-131.0); Non-African American GFR(CKD) 51.2 (60.0-200.0); Potassium 4.3 mmol/L (3.5-5.5); Total Bilirubin 0.7 mg/dL (0.2-1.2); Total Protein 5.9 g/dL (6.2-8.2); VLDL Calculation 17.2 mg/dL (5.00-40.00)
[2020-04-07 15:27] LABS: Prostate Specific Antigen 2.6 ng/mL (0.0-6.5)
== END | disposition home or self-care (01) ==
LOC: LABWHC1 09:04
PROVIDERS: ATTEND Family Medicine
DX: E78.5 Hyperlipidemia, unspecified (principal); Z12.5 Encounter for screening for malignant neoplasm of prostate
CPT/HCPCS: 36415; 80053; 80061; 84153; 85025

== ENCOUNTER → 2020-04-30 | Outpatient (CLI) | payer MEDICARE ==
--- NOTE | 2020-04-30 14:20 | CT ---
EXAMINATION TYPE: CT brain wo/w con DATE OF EXAM: 04/30/2020 COMPARISON: CT brain February 17, 2017. MRI brain February 18, 2013. HISTORY: Headaches CT DLP: 2107 mGycm Automated exposure control for dose reduction was used. CONTRAST: CT scan of the head is performed without and with IV Contrast, patient injected with 80 mL of Isovue 300. FINDINGS: No acute intracranial hemorrhage or midline shift. Mild to moderate ventricular and sulcal prominence . Mild to moderate low-attenuation in the periventricular white matter . Postcontrast images show no suspicious enhancing mass. The globes are intact and the visualized sinuses are clear. Vascular calci fication distal vertebral and internal carotid arteries is redemonstrated. IMPRESSION: [id number] diffuse cerebral atrophy and chronic small vessel ischemic change redemo nstrated. No suspicious enhancement. No significant change from prior studies.
--- NOTE | 2020-04-30 14:46 | US ---
EXAMINATION TYPE: US carotid duplex BILAT DATE OF EXAM: 04/30/2020 COMPARISON: US 2017 CLINICAL HISTORY: I65.23 occlusions of bilateral. Headache EXAM MEASUREMENTS: RIGHT: Peak Systolic Velocity (PSV) cm/sec ----- Right CCA: 69.4 ----- Right ICA: 101.7 ----- Right ECA: 79.1 ICA/CCA ratio: 1.5 RIGHT: End Diastole cm/sec ----- Right CCA: 14.5 ----- Right ICA: 20.9 ----- Right ECA: 0.0 LEFT: Peak Systolic Velocity (PSV) cm/sec ----- Left CCA: 78.2 ----- Left ICA: 124.8 ----- Left ECA: 62.5 ICA/CCA ratio: 1.6 LEFT: End Diastole cm/sec ----- Left CCA: 16.8 ----- Left ICA: 32.5 ----- Left ECA: 0.0 VERTEBRALS (direction of flow): Right Vertebral: Antegrade Left Vertebral: Antegrade Rhythm: Normal IMPRESSION: Bilateral intimal thickening, plaque bilateral bulb, no elevated velocities, no signific ant stenosis. Criteria for Assigning % of Stenosis / Diameter reduction (Estimation based on the indirect measurements of the internal carotid artery velocities (ICA PSV). 1. Normal (no stenosis)=ICA PSV < 125 cm/s: ratio < 2.0: ICA EDV<40 cm/s. 2. Less than 50% stenosis=ICA PSV < 125 cm/s: ratio < 2.0: ICA EDV<40 cm/s. 3. 50 to 69% stenosis=ICA PSV of 125 to 230 cm/s: ration 2.0 ? 4.0: ICA EDV 40-100 cm/s. 4. Greater than 70% stenosis to near occlusion= ICA PSV > 230 cm/s: ratio > 4.0: ICA EDV > 100 cm/s. 5. Near occlusion= ICA PSV velocities may be low or undetectable: variable ratio and ICA EDV. 6. Total occlusion=unable to detect flow.
== END | disposition home or self-care (01) ==
LOC: RADCTMAIN 13:00
PROVIDERS: ATTEND Family Medicine
DX: I67.82 Cerebral ischemia (principal); G31.1 Senile degeneration of brain, not elsewhere classified; R93.0 Abnormal findings on diagnostic imaging of skull and head, not elsewhere classified; I65.23 Occlusion and stenosis of bilateral carotid arteries; R51.9 Headache, unspecified
CPT/HCPCS: 82565; 84520; 93880; 70470; 36415; Q9967

== ENCOUNTER → 2020-09-21 | Outpatient (CLI) | payer MEDICARE ==
--- NOTE | 2020-09-21 11:31 | XR ---
EXAMINATION TYPE: XR chest 2V DATE OF EXAM: 09/21/2020 COMPARISON: 08/25/2018 HISTORY: Short of breath TECHNIQUE: Frontal and lateral views of the chest are obtained. FINDINGS: There is no focal air space opacity, pleural effusion, or pneumothorax seen. The cardiac silhouette size is within normal limits. The osseous structures are intact. IMPRESSION: No acute cardiopulmonary process.
== END | disposition home or self-care (01) ==
LOC: RADXRMAIN 11:03
PROVIDERS: ATTEND Internal Medicine Cardiovascular Disease
DX: R06.02 Shortness of breath (principal)
CPT/HCPCS: 71046; 83880

== ENCOUNTER 2020-10-08 07:36 | Day surgery (SDC) | payer MEDICARE ==
[2020-10-06 10:31] VITALS: BMI 22.7
[~2020-10-08 07:36] MED LIST: ALPRAZolam 0.25 MG TAB PO PRN; ALPRAZolam 0.5 MG TAB PO PRN; ASPIRIN 325 MG TAB PO ONE; ATORVASTATIN 80 MG TAB PO ONE; NITROGLYCERIN SL TABS 0.4 MG TAB SUBLINGUAL PRN; SODIUM CHLORIDE 0.9% 1,000 ML in EMPTY BAG 1 BAG IV ONE
[2020-10-08 08:06] VITALS: RESP 18; TEMP 98
[2020-10-08 08:16] LABS: Basophils # (A) 0.1 k/uL (0-0.2); Basophils % (A) 1 %; Eosinophils # (A) 0.2 k/uL (0-0.7); Eosinophils % (A) 2 %; HCT 42.9 % (39.0-53.0); HGB 14.3 gm/dL (13.0-17.5); Lymphocytes # (A) 3.4 k/uL (1.0-4.8); Lymphocytes % (A) 29 %; MCHC 33.3 g/dL (31.0-37.0); MCV 96.1 fL (80.0-100.0); Mean Platelet Volume 7.2; Monocytes # (A) 0.7 k/uL (0-1.0); Monocytes % (A) 6 %; Neutrophils # (A) 7.1 k/uL (1.3-7.7); Neutrophils % (A) 60 %; Platelet Count 256 k/uL (150-450); RBC 4.46 m/uL (4.30-5.90); RDW 13.6 % (11.5-15.5); WBC 11.7 k/uL (3.8-10.6)
[2020-10-08] MEDS ORDERED: fentaNYL (PF) 50 MCG/ML 2 ML AMP ONE (08:29)
[2020-10-08 08:42] LABS: Calcium 9.8 mg/dL (8.4-10.2); Potassium 4.2 mmol/L (3.5-5.1)
[2020-10-08] MEDS ORDERED: IV FLUID CONTINUATION 950 ML IV ONE (09:01)
[2020-10-08] MEDS: BENZOCAINE SPRAY 1 CAN MUCOUS MEM ONE ×2 (09:04→09:21)
[2020-10-08] MEDS ORDERED: MIDAZOLAM 2 MG/2 ML VIAL IV ONE (09:25)
[2020-10-08] MEDS ORDERED: fentaNYL (PF) 50 MCG/ML 2 ML AMP IV ONE (09:25)
[2020-10-08] MEDS ORDERED: LIDOCAINE 1% INJ 10MG/ML (20 ML MDV) ONE (09:48)
[2020-10-08] MEDS ORDERED: HEPARIN SODIUM 1,000 UN/ML (10ML VL) ONE (09:48)
[2020-10-08] MEDS ORDERED: VERAPAMIL 2.5 MG/ML 2 ML AMP ONE (09:48)
[2020-10-08] MEDS ORDERED: LIDOCAINE 1% INJ 10MG/ML (20 ML MDV) SQ ONE (10:06)
[2020-10-08] MEDS ORDERED: IOPAMIDOL-370 125ML BTL INJ ONE (10:26)
[2020-10-08] MEDS ORDERED: IOPAMIDOL-370 50ML BTL INJ ONE (10:28)
[2020-10-08] MEDS ORDERED: SODIUM CHLORIDE 0.9% 1,000 ML IV SCH ×2 (10:30→10:45)
[2020-10-08] MEDS ORDERED: RX INFO: IV CONTRAST WAS GIVEN 1 EACH MISC MISCELLANE PRN (10:30)
--- NOTE | 2020-10-08 11:07 | P.TEE ---
Date of Procedure: 10/08/20 Preoperative Diagnosis: Severe aortic regurgitation and moderate mitral regurgitation and exertional shortness of breath Postoperative Diagnosis: Moderate aortic regurgitation and moderate mitral regurgitation Procedure(s) Performed: LUPE Description of Procedure(s): INDICATION: Aortic and mitral valve regurgitation CONSENT: Informed verbal consent is obtained from the patient and family PROCEDURE:. Patient was brought to the lab in a fasting state. He was prepped and draped in the usual fashion. Patient throat was sprayed with Hurricaine. A lubricated Omni probe was introduced into the oropharynx and was advanced into the esophagus . Multiple views were obtained. Patient tolerated the procedure well. Color, pulsed and continuous Doppler and also saline contrast bubble injection were performed. Patient tolerated the procedure well FINDINGS:. The aortic valve is tricuspid and opening normally. There is eccentric aortic regurgitation which appears be moderate in degree. The mitral valve showed central regurgitation with a PISA value of 0.5. This is sized to moderate mitral regurgitation. No clot in the left atrial appendage. No reversal of flow in the pulmonary veins. There is evidence of PFO, which appears to be small with a small plak-ff-scwek shunt. Injection of the saline contrast bubbles showed crossing of bubbles from the left side across interatrial septum. The left ventricular function appeared to be fair. There is mild plaque in the aorta. IMPRESSION: #1. Moderate aortic regurgitation. #2. Moderate mitral regurgitation #3. PFO which appears to be small with spontaneous shunt from left to right before. Mild plaque in the aorta. #5. Left ventricular function appeared within PLAN: Continued medical therapy. Further assessment with cardiac catheterization
--- NOTE | 2020-10-08 11:12 | P.CARDCATH ---
Date of Procedure: 10/08/20 Preoperative Diagnosis: Exertional shortness of breath and aortic and mitral valve regurgitation. History of coronary artery disease with previous stent placement Postoperative Diagnosis: Stable coronary artery disease with patent stents in the LAD. Moderate aortic regurgitation Procedure(s) Performed: Left heart catheterization with aortic root injection. No left ventriculography Description of Procedure: HISTORY: This is a 80-year-old gentleman with history of ischemic heart disease with previous stent placement who has been complaining of exertional shortness of breath. Patient's echo Cardigan showed moderate to severe aortic regurgitation and moderate mitral regurgitation. Patient is advised to have LUPE and cardiac catheterization for definite diagnosis CONSENT:I have discussed the risks, benefits and alternative therapies for the above-mentioned procedure and for both sedation/analgesia as well as necessary blood product administration, if indicated, as they pertain to this patient. The patient has indicated understanding and acceptance of the risks and procedures discussed. PROCEDURE: Patient was brought to the lab in a fasting state. Patient received IV sedation for the LUPE examination of 2 mg of Versed and 50 g of fentanyl. No further sedation was given for the cardiac cath.. The right groin is infiltrated with lidocaine and right femoral artery was entered using Seldinger technique. A 6-Nigerian catheter was left in place and selective coronary arteriography and aortic root injection was performed. Patient tolerated the procedure well. Femoral angiogram was performed and Angio-Seal was applied for hemostasis. No immediate complications were noted and patient was transferred to [facility] in a stable condition Conscious Sedation: Versed 0mg Fentanyl 0 g Duration 20minutes HEMODYNAMICS: The aortic pressure was 110/ 70. Left ankle end-diastolic pressure is about 15-17. There was no gradient across the aortic valve SELECTIVE CORONARY ARTERIOGRAPHY: LEFT MAIN: Normal length and free of occlusive disease THE LEFT ANTERIOR DESCENDING CORONARY ARTERY: . Good caliber vessel giving rise good-sized diagonal branch. It. The stents in the proximal mid LAD, a patent THE LEFT CIRCUMFLEX AND IS CORONARY ARTERY: . This is a good caliber vessel giving rise good-sized OM branch. There is mild diffuse disease without any significant focal stenosis THE RIGHT CORONARY ARTERY: . This is a dominant vessel giving rise to PDA and PLV. There is mild diffuse plaque without any significant focal disease LEFT VENTRICULOGRAPHY: Not performed AORTIC ROOT INJECTION: This was done in the left anterior oblique projection. This revealed evidence of 2-3+ aortic regurgitation FINAL IMPRESSION: #1. Moderate aortic regurgitation #2. Stable coronary artery disease with patent stents in the LAD PLAN: Continue maximal medical therapy and risk factor modification PROGNOSIS: Fair
[2020-10-08 15:28] VITALS: BP 104/56; PULSE 46
== END 2020-10-08 15:29 | disposition home or self-care (01) ==
LOC: CATHCVL 07:36
PROVIDERS: ATTEND Internal Medicine Cardiovascular Disease
DX: I08.0 Rheumatic disorders of both mitral and aortic valves (principal)
CPT/HCPCS: 93312; 93320; 93325; 93458; 93567; 80048; 85025; C1760; C1894 ×2; C1769 ×2; J2250; J2001; J3010; Q9967 ×2

== ENCOUNTER 2021-02-04 18:24 | Emergency (ER) | payer MEDICARE ==
[2021-02-04 18:34] VITALS: TEMP 97.8
[2021-02-04] MEDS ORDERED: SODIUM CHLORIDE 0.9% 1,000 ML IV ONE (22:24)
--- NOTE | 2021-02-04 22:32 | ED ---
URI HPI - General Chief Complaint: Upper Respiratory Infection Stated Complaint: cough/sob/fever Time Seen by Provider: 02/04/21 22:18 Source: patient Mode of arrival: ambulatory Limitations: no limitations - History of Present Illness Initial Comments: This patient is an 80-year-old man who presents with complaint of proximal to 6 days of cough and chills. The patient states that he had received influenza shot last week just prior to onset of symptoms. The patient does note that he had covid vaccine in April of this year. MD Complaint: cough Onset/Timin -: days(s) Severity: moderate Consistency: constant Improves With: nothing Worsens With: nothing Associated Symptoms: chills, cough Treatments Prior to Arrival: none - Related Data Home Medications Medication Instructions Recorded Confirmed Aspirin 81 mg PO DAILY 06/27/15 02/04/21 Nitroglycerin Sl Tabs [Nitrostat] 0.4 mg SUBLINGUAL Q5M PRN 06/27/15 02/04/21 Simvastatin [Zocor] 20 mg PO HS 06/27/15 02/04/21 Fiber Tab 2 tab PO DAILY 06/28/15 02/04/21 Multivitamins, Thera [Multivitamin 1 tab PO DAILY 06/28/15 02/04/21 (formulary)] Cholecalciferol [Vitamin D3 (25 50 mcg PO DAILY 02/04/21 02/04/21 Mcg = 1000 Iu)] Omeprazole 20 mg PO DAILY 02/04/21 02/04/21 Previous Rx's Medication Instructions Recorded Propranolol [Inderal] 10 mg PO BID #60 tab 07/15/16 Allergies Allergy/AdvReac Type Severity Reaction Status Date / Time No Known Allergies Allergy Verified 02/04/21 23:01 Review of Systems ROS Statement: Those systems with pertinent positive or pertinent negative responses have been documented in the HPI. ROS Other: All systems not noted in ROS Statement are negative. Constitutional: Reports: chills. Denies: fever ENT: Denies: throat pain, congestion Respiratory: Reports: cough. Denies: dyspnea, wheezes, hemoptysis Cardiovascular: Denies: chest pain, palpitations Gastrointestinal: Reports: nausea. Denies: abdominal pain, vomiting, diarrhea Genitourinary: Denies: dysuria, hematuria Musculoskeletal: Denies: back pain Skin: Denies: rash Neurological: Denies: headache, weakness, numbness Past Medical History Past Medical History: GERD/Reflux, Hyperlipidemia, Myocardial Infarction ([place]) Additional Past Medical History / Comment(s): aortic aneurysm-dr. shipley, hand tremors, Last Myocardial Infarction Date:: 1998 History of Any Multi-Drug Resistant Organisms: None Reported Past Surgical History: Heart Catheterization With Stent, Hernia Repair Additional Past Surgical History / Comment(s): Lt Knee arthroscopy Past Anesthesia/Blood Transfusion Reactions: No Reported Reaction Date of Last Stent Placement:: 1998 Past Psychological History: No Psychological Hx Reported Smoking Status: Never smoker Past Alcohol Use History: None Reported Past Drug Use History: None Reported - Past Family History Mother Family Medical History: No Reported History General Exam Limitations: no limitations General appearance: alert, in no apparent distress Head exam: Present: atraumatic, normocephalic Eye exam: Present: normal appearance. Absent: scleral icterus, conjunctival injection Neck exam: Present: normal inspection Respiratory exam: Present: normal lung sounds bilaterally. Absent: respiratory distress, wheezes, rales, rhonchi, stridor Cardiovascular Exam: Present: regular rate, normal rhythm, normal heart sounds. Absent: systolic murmur, diastolic murmur, rubs, gallop GI/Abdominal exam: Present: soft. Absent: distended, tenderness, guarding, rebound, rigid, mass Extremities exam: Present: normal inspection, normal capillary refill. Absent: pedal edema, calf tenderness Back exam: Present: normal inspection. Absent: CVA tenderness (R), CVA tenderness (L) Neurological exam: Present: alert Skin exam: Present: warm, dry, intact, normal color. Absent: rash Course Vital Signs 02/04/21 02/04/21 02/04/21 18:31 23:00 23:11 Temperature 97.8 F Pulse Rate 87 71 Respiratory 22 16 22 Rate Blood Pressure 108/67 113/61 O2 Sat by Pulse 94 L 94 L Oximetry 02/05/21 01:13 Temperature Pulse Rate 88 Respiratory 18 Rate Blood Pressure 124/78 O2 Sat by Pulse 94 L Oximetry Medical Decision Making - Lab Data Lab Results 02/04/21 Range/Units 18:37 Coronavirus (PCR) Detected A (Not Detectd) Disposition Clinical Impression: COVID Disposition: HOME SELF-CARE Condition: Fair Instructions (If sedation given, give patient instructions): Coronavirus Disease 2019 (COVID-19) Is patient prescribed a controlled substance at d/c from ED?: No Referrals: Clif Dutta MD [Primary Care Provider] - 1-2 days
[2021-02-04] MEDS ORDERED: SODIUM CHLORIDE 0.9% 50 ML IVPB ONE (23:00)
[2021-02-04] MEDS ORDERED: SOTROVIMAB (EUA) 500 MG in SODIUM CHLORIDE 0.9% 100 ML IVPB ONE (23:00)
--- NOTE | 2021-02-04 23:09 | XR ---
EXAMINATION TYPE: XR chest 2V DATE OF EXAM: 02/04/2021 COMPARISON: 09/21/2020 HISTORY: Short of breath TECHNIQUE: FINDINGS: There is no heart failure nor confluent pneumonic infiltrate. Costophrenic angles are clear . Heart size is normal. There are no hilar masses. Bony thorax is intact. IMPRESSION: No active cardiopulmonary disease. No change.
[2021-02-05 01:14] VITALS: BP 124/78; PULSE 88; RESP 18
== END 2021-02-05 01:14 | disposition home or self-care (01) ==
LOC: EC 18:24
DX: U07.1 COVID-19 (principal); E78.5 Hyperlipidemia, unspecified; I25.2 Old myocardial infarction; K21.9 Gastro-esophageal reflux disease without esophagitis; Z79.82 Long term (current) use of aspirin; Z79.899 Other long term (current) drug therapy
CPT/HCPCS: 87635; 71046; 99283; 96360; Q0247

== ENCOUNTER → 2021-08-05 | Outpatient (CLI) | payer MEDICARE ==
[2021-08-05 18:37] LABS: T4, Free (Free Thyroxine) 1.09 ng/dL (0.800-1.800)
== END | disposition home or self-care (01) ==
LOC: LABWHC1 11:57
PROVIDERS: ATTEND Psychiatry & Neurology Neurology
DX: R41.3 Other amnesia (principal); R63.4 Abnormal weight loss; R25.1 Tremor, unspecified
CPT/HCPCS: 36415; 82306; 82607; 84439; 84443

== ENCOUNTER → 2021-08-21 | Outpatient (CLI) | payer MEDICARE ==
--- NOTE | 2021-08-22 11:36 | MR ---
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 Cortical atrophy is again seen. There is no hemorrhage or hydroceph alus. Corpus callosum, pituitary, cervical medullary junction, cerebellopontine angles are within nor mal limits. There are expected vascular flow voids. Inflammatory change present in the mastoid air ce lls right greater than left, there is inflammatory change present within the sphenoid sinus, ethmoid air cells, maxillary sinuses with mucosal changes. The orbits show symmetric appearance. Scattered pe riventricular white matter hyperintensities are present, there is some confluent periventricular hype rintensity and inversion recovery T2-weighted sequences. Artifact present presumably due to dental amaral rdware. IMPRESSION: Age-related changes of atrophy and chronic small vessel ischemia. Inflammatory changes ma stoid air cells, sinuses.
== END | disposition home or self-care (01) ==
LOC: RADMRIMAIN 12:29
PROVIDERS: ATTEND Psychiatry & Neurology Neurology
DX: I67.82 Cerebral ischemia (principal); G46.3 Brain stem stroke syndrome; G31.9 Degenerative disease of nervous system, unspecified
CPT/HCPCS: 70551

== ENCOUNTER → 2021-12-28 | Outpatient (CLI) | payer MEDICARE ==
[2021-12-28 14:33] LABS: Basophils # (A) 0.09 X 10*3/uL (0.00-0.10); Basophils % (A) 1.3 %; Eosinophils # (A) 0.22 X 10*3/uL (0.04-0.35); Eosinophils % (A) 3.2 %; HCT 37.8 % (39.6-50.0); HGB 12.7 g/dL (13.0-17.0); Immature Grans, Automated 0.3 %; Lymphocytes # (A) 2.35 X 10*3/uL (0.90-5.00); Lymphocytes % (A) 34.3 %; MCH 31.2 pg (27.0-32.0); MCHC 33.6 g/dL (32.0-37.0); MCV 92.9 fL (80.0-97.0); Mean Platelet Volume 10.7 fL (9.5-12.2); Monocytes # (A) 0.56 X 10*3/uL (0.20-1.00); Monocytes % (A) 8.2 %; NRBC Per 100 WBC 0 /100 WBCS (0.0-0.0); Neutrophils # (A) 3.62 X 10*3/uL (1.80-7.70); Neutrophils % (A) 52.7 %; Platelet Count 206 X 10*3/uL (140-440); RBC 4.07 X 10*6/uL (4.40-5.60); RDW 13.2 % (11.5-14.5); WBC 6.86 X 10*3/uL (4.50-10.00)
[2021-12-28 14:36] LABS: ALT 14 U/L (10-49); AST 21 U/L (14-35); African American GFR (CKD) 53.5 (60.0-200.0); Albumin 3.7 g/dL (3.8-4.9); Albumin/Globulin Ratio 1.28 (1.60-3.17); Alkaline Phosphatase 59 U/L (41-126); BUN/Creat Ratio 12.21 Ratio (12.00-20.00); Blood Urea Nitrogen 17.1 mg/dL (9.0-27.0); Calcium 9.1 mg/dL (8.7-10.3); Chloride 108 mmol/L (96-109); Globulin 2.9 g/dL (1.6-3.3); Glucose 97 mg/dL (70-110); LDL Cholesterol,Calculated 74.9 mg/dL (0.0-131.0); Non-African American GFR(CKD) 46.1 (60.0-200.0); Potassium 4.3 mmol/L (3.5-5.5); Sodium 142 mmol/L (135-145); Total Protein 6.6 g/dL (6.2-8.2); VLDL Calculation 15.08 mg/dL (5.00-40.00)
== END | disposition home or self-care (01) ==
LOC: LABWHC1 09:06
PROVIDERS: ATTEND Internal Medicine Clinical Cardiac Electrophysiology
DX: I25.10 Atherosclerotic heart disease of native coronary artery without angina pectoris (principal); I42.9 Cardiomyopathy, unspecified
CPT/HCPCS: 36415; 80053; 80061; 85025

== ENCOUNTER → 2022-06-07 | Outpatient (CLI) | payer MEDICARE ==
--- NOTE | 2022-06-07 16:05 | CT ---
EXAMINATION TYPE: CT abdomen pelvis w con CT DLP: 536.60 mGycm, Automated exposure control for dose reduction was used. DATE OF EXAM: 06/07/2022 3:51 PM COMPARISON: Abdominal radiograph 05/12/2022. CLINICAL INDICATION:Male, 81 years old with history of R10.32 LEFT LOWER QUADRANT PAIN; LLQ pain x 1 month TECHNIQUE: Standard CT of the abdomen and pelvis following the administration of 70 cc of Isovue 30 0 IV contrast material and oral contrast. Coronal and sagittal reformats were performed. FINDINGS: LOWER CHEST: Unremarkable ABDOMEN LIVER: Scattered calcified granulomas. GALLBLADDER AND BILE DUCTS: Unremarkable. PANCREAS: Unremarkable. SPLEEN: Scattered calcified granulomas. ADRENAL GLANDS: Unremarkable. KIDNEYS AND URETERS: No evidence of hydronephrosis or renal calculus. Mild bilateral cortical thinnin g. The kidneys enhance symmetrically. PELVIS BLADDER: Unremarkable REPRODUCTIVE: Prostate is enlarged in size measuring 5.3 cm in transverse dimension. Central prostate calcifications identified. ABDOMEN & PELVIS STOMACH AND BOWEL: Stomach and duodenum are unremarkable. Distal colonic diverticulosis without evide nce for acute diverticulitis. Enteric contrast reaches the distal small bowel. No evidence of bowel o bstruction. PERITONEUM: No evidence of pneumoperitoneum or free fluid. VASCULATURE: Infrarenal fusiform abdominal aortic aneurysm just above the bifurcation measuring 4.8 x 4.5 cm with eccentric mural thrombus. The ALFA, SMA, and celiac axis are patent. Both renal single ar teries are patent. There is moderate stenosis of the origins of the bilateral single renal arteries a nd SMA. MUSCULOSKELETAL: No acute osseous abnormalities. Mild multilevel degenerative disc disease. Mild retr olisthesis of L2 on L3 and grade 1 anterolisthesis of L4 on L5. No pars defects. Multilevel facet art hropathy. LYMPH NODES: No gross evidence for lymphadenopathy. SOFT TISSUE/ABDOMINAL WALL: Fat filled left inguinal hernia. IMPRESSION: 1. No acute abdominal cyst pelvic process. 2. Fat filled left inguinal hernia. 3. Abdominal aortic aneurysm measuring up to 4.8 cm. 4. Sequelae of prior granulomatous disease.
== END | disposition home or self-care (01) ==
LOC: RADCTMAIN 13:45
PROVIDERS: ATTEND Family Medicine
DX: I71.40 Abdominal aortic aneurysm, without rupture, unspecified (principal); K40.90 Unilateral inguinal hernia, without obstruction or gangrene, not specified as recurrent; R10.32 Left lower quadrant pain
CPT/HCPCS: 82565; 84520; 74177; 36415; Q9967

== ENCOUNTER 2022-10-05 09:36 | Day surgery (SDC) | payer MEDICARE ==
[2022-09-28 11:48] VITALS: BMI 22.1
--- NOTE | 2022-10-05 08:10 | P.GSHP ---
History of Present Illness H&P Date: 10/05/22 CHIEF COMPLAINT: Colon screen HISTORY OF PRESENT ILLNESS: The patient is a 82-year-old male who presents for colon screen. Lower endoscopy was offered for further evaluation and management. PAST MEDICAL HISTORY: Please see list. PAST SURGICAL HISTORY: Please see list. MEDICATIONS: Please see list. ALLERGIES: Please see list. SOCIAL HISTORY: No illicit drug use FAMILY HISTORY: No reports of Crohn disease or ulcerative colitis. REVIEW OF ORGAN SYSTEMS: CONSTITUTIONAL: No reports of fevers or chills. PHYSICAL EXAM: VITAL SIGNS: Stable GENERAL: Well-developed pleasant in no acute distress. HEENT: No scleral icterus. Extraocular movements grossly intact. Moist buccal mucosa. NECK: Supple without lymphadenopathy. CHEST: Unlabored respirations. Equal bilateral excursions. CARDIOVASCULAR: Regular rate and rhythm. Distal 2+ pulses. ABDOMEN: Soft, nontender, nondistended. MUSCULOSKELETAL: No clubbing, cyanosis, or edema. ASSESSMENT: 1. Colon screen. PLAN: 1. Recommend proceeding with a lower endoscopy Past Medical History Past Medical History: GERD/Reflux, Hyperlipidemia, Myocardial Infarction ([place]) Additional Past Medical History / Comment(s): aortic aneurysm- monitoring, hand tremors, Last Myocardial Infarction Date:: 1998 History of Any Multi-Drug Resistant Organisms: None Reported Past Surgical History: Heart Catheterization With Stent, Hernia Repair, Orthopedic Surgery Additional Past Surgical History / Comment(s): Lt Knee arthroscopy Past Anesthesia/Blood Transfusion Reactions: No Reported Reaction Date of Last Stent Placement:: 1998 Smoking Status: Never smoker - Past Family History Mother Family Medical History: No Reported History Medications and Allergies Home Medications Medication Instructions Recorded Confirmed Type Aspirin 81 mg PO DAILY 06/27/15 09/28/22 History Nitroglycerin Sl Tabs [Nitrostat] 0.4 mg SUBLINGUAL Q5M PRN 06/27/15 09/28/22 History Simvastatin [Zocor] 20 mg PO HS 06/27/15 09/28/22 History Fiber Tab 2 tab PO DAILY 06/28/15 09/28/22 History Multivitamins, Thera [Multivitamin 1 tab PO DAILY 06/28/15 09/28/22 History (formulary)] Propranolol [Inderal] 10 mg PO BID #60 tab 07/15/16 09/28/22 Rx Cholecalciferol [Vitamin D3 (25 50 mcg PO DAILY 02/04/21 09/28/22 History Mcg = 1000 Iu)] Omeprazole 20 mg PO DAILY 02/04/21 09/28/22 History Allergies Allergy/AdvReac Type Severity Reaction Status Date / Time No Known Allergies Allergy Verified 09/28/22 11:51
[~2022-10-05 09:36] MED LIST changes: -ALPRAZolam 0.25 MG TAB PO PRN; -ALPRAZolam 0.5 MG TAB PO PRN; -ASPIRIN 325 MG TAB PO ONE; -ATORVASTATIN 80 MG TAB PO ONE; +LACTATED RINGERS 1,000 ML IV SCH; +LIDOCAINE 1% (10MG/ML) FOR IV START INTRADERMA PRN; -NITROGLYCERIN SL TABS 0.4 MG TAB SUBLINGUAL PRN; -SODIUM CHLORIDE 0.9% 1,000 ML in EMPTY BAG 1 BAG IV ONE
[2022-10-05 10:14] VITALS: TEMP 97.6
[2022-10-05] MEDS ORDERED: PROPOFOL 10 MG/ML 20 ML VIAL IV ONE (10:36)
[2022-10-05 11:07] VITALS: RESP 16
--- NOTE | 2022-10-05 11:13 | P.PCN ---
Date of Procedure: 10/05/22 Description of Procedure: PREOPERATIVE DIAGNOSIS: Diverticulosis with left-sided abdominal pain POSTOPERATIVE DIAGNOSIS: Severe sigmoid diverticulosis OPERATION: Colonoscopy to the cecum, ileocecal valve and appendiceal orifice. SURGEON: Sarah Lucero MD. ANESTHESIA: MAC. INDICATIONS: The patient is a 82-year-old male who presents with severe left lower quadrant abdominal pain and change in bowel habits for diverticulosis Benefits and risks were described and informed consent was obtained. DESCRIPTION OF PROCEDURE: The patient had undergone Sutab prep. The patient had been brought into the operating room and laid in the left lateral decubitus position. After adequate intravenous sedation, the rectum was examined with 2% lidocaine jelly. No external hemorrhoids were encountered. The rectal tone was within normal limits. No lesions were palpated in the rectal vault. An Olympus colonoscope was advanced until the cecum, ileocecal valve and appendiceal orifice were clearly viewed. The prep was excellent. Pandiverticulosis with severe sigmoid diverticulosis was encountered. No colonic polyps were found. No evidence of focal colitis was found. Retroflexion of the scope demonstrated grade 1 internal hemorrhoids without active bleeding or inflammation. The colon was desufflated. The patient had tolerated the procedure well. Withdrawal time was over 6 minutes. FINDINGS: Aronchick preparation quality scale 1 (1-5) Internal hemorrhoids, grade 1 No external prolapsed hemorrhoids. No arteriovenous malformations. No adenomatous polyps. No focal colitis. Pandiverticulosis with severe sigmoid diverticulosis RECOMMENDATIONS: Lower endoscopy as needed Plan - Discharge Summary Discharge Rx Participant: No New Discharge Prescriptions: Continue Aspirin 81 mg PO DAILY Nitroglycerin Sl Tabs [Nitrostat] 0.4 mg SUBLINGUAL Q5M PRN PRN Reason: Chest Pain Simvastatin [Zocor] 20 mg PO HS Multivitamins, Thera [Multivitamin (formulary)] 1 tab PO DAILY Fiber Tab 2 tab PO DAILY Propranolol [Inderal] 10 mg PO BID #60 tab Cholecalciferol [Vitamin D3 (25 Mcg = 1000 Iu)] 50 mcg PO DAILY Omeprazole 20 mg PO DAILY Discharge Medication List Aspirin 81 mg PO DAILY 06/27/15 [History] Nitroglycerin Sl Tabs [Nitrostat] 0.4 mg SUBLINGUAL Q5M PRN 06/27/15 [History] Simvastatin [Zocor] 20 mg PO HS 06/27/15 [History] Fiber Tab 2 tab PO DAILY 06/28/15 [History] Multivitamins, Thera [Multivitamin (formulary)] 1 tab PO DAILY 06/28/15 [History] Propranolol [Inderal] 10 mg PO BID #60 tab 07/15/16 [Rx] Cholecalciferol [Vitamin D3 (25 Mcg = 1000 Iu)] 50 mcg PO DAILY 02/04/21 [ History] Omeprazole 20 mg PO DAILY 02/04/21 [History] Follow up Appointment(s)/Referral(s): Sarah Lucero MD [STAFF PHYSICIAN] - 10/11/22 11:00 am Patient Instructions/Handouts: Diverticulosis Diet (GEN), Diverticulosis (DC) Activity/Diet/Wound Care/Special Instructions: Lower endoscopy as needed Discharge Disposition: HOME SELF-CARE
--- NOTE | 2022-10-05 11:21 | P.PN ---
Progress Note - Text Progress Note Date: 10/05/22 Recommend twelve-lead EKG for chest pain
[2022-10-05 11:43] VITALS: BP 105/68; PULSE 63
== END 2022-10-05 12:23 | disposition home or self-care (01) ==
LOC: ORWHC2ENDO 09:36
PROVIDERS: ATTEND Surgery Plastic and Reconstructive Surgery
DX: K57.30 Diverticulosis of large intestine without perforation or abscess without bleeding (principal); K21.9 Gastro-esophageal reflux disease without esophagitis; I25.2 Old myocardial infarction; Z98.890 Other specified postprocedural states; Z79.82 Long term (current) use of aspirin; Z79.899 Other long term (current) drug therapy
CPT/HCPCS: 45378; J2704

== ENCOUNTER 2023-03-04 05:51 | Emergency (ER) | payer MEDICARE ==
[2023-03-04] MEDS ORDERED: SODIUM CHLORIDE 0.9% 500 ML 500 ML IV STA (06:15)
[2023-03-04] MEDS ORDERED: dexAMETHasone 4 MG TAB PO STA (06:15)
[2023-03-04 06:21] VITALS: PULSE 60; TEMP 98.2
[2023-03-04 06:36] LABS: Basophils # (A) 0.1 k/uL (0-0.2); Basophils % (A) 1 %; Eosinophils # (A) 0.3 k/uL (0-0.7); Eosinophils % (A) 3 %; HCT 38.6 % (39.0-53.0); HGB 12.8 gm/dL (13.0-17.5); Lymphocytes # (A) 3.7 k/uL (1.0-4.8); Lymphocytes % (A) 34 %; MCH 31.1 pg (25.0-35.0); MCHC 33.2 g/dL (31.0-37.0); MCV 93.6 fL (80.0-100.0); Mean Platelet Volume 8.5; Monocytes # (A) 0.6 k/uL (0-1.0); Monocytes % (A) 6 %; Neutrophils % (A) 54 %; Platelet Count 177 k/uL (150-450); RBC 4.13 m/uL (4.30-5.90); RDW 13.1 % (11.5-15.5); WBC 10.9 k/uL (3.8-10.6)
--- NOTE | 2023-03-04 06:40 | ED ---
General Adult HPI - General Chief complaint: Upper Respiratory Infection Stated complaint: Covid Time Seen by Provider: 03/04/23 06:01 Source: patient, RN notes reviewed, old records reviewed Mode of arrival: ambulatory Limitations: no limitations - History of Present Illness Initial comments: Patient is an 82-year-old male presents emergency Department over concern for COVID-19 infection. States he is not improving. Has a history of a single cardiac stent from 1998, hyperlipidemia. States symptoms began on Melania Rissa. That was 6 days ago. Is still having a productive cough, joint aches, fatigue. Denies chest pain, abdominal pain, nausea, vomiting, diarrhea. No other acute complaints at this time. Presents for further evaluation. States he believes he is staying hydrated. - Related Data Home Medications Medication Instructions Recorded Confirmed Aspirin 81 mg PO DAILY 06/27/15 10/05/22 Nitroglycerin Sl Tabs [Nitrostat] 0.4 mg SUBLINGUAL Q5M PRN 06/27/15 09/28/22 Simvastatin [Zocor] 20 mg PO HS 06/27/15 09/28/22 Fiber Tab 2 tab PO DAILY 06/28/15 09/28/22 Multivitamins, Thera [Multivitamin 1 tab PO DAILY 06/28/15 09/28/22 (formulary)] Cholecalciferol [Vitamin D3 (25 50 mcg PO DAILY 02/04/21 09/28/22 Mcg = 1000 Iu)] Omeprazole 20 mg PO DAILY 02/04/21 09/28/22 Previous Rx's Medication Instructions Recorded Propranolol [Inderal] 10 mg PO BID #60 tab 07/15/16 Allergies Allergy/AdvReac Type Severity Reaction Status Date / Time No Known Allergies Allergy Verified 03/04/23 06:00 Review of Systems ROS Statement: Those systems with pertinent positive or pertinent negative responses have been documented in the HPI. Review of Systems: CONST: Denies fever EYES: Denies blurry vision ENT: Endorses nasal congestion, cough C/V: Denies Chest pain RESP: Denies shortness of breath GI: Denies abdominal pain : Denies dysuria SKIN: Denies rash. MSK: Endorses generalized joint pain NEURO: Denies headache ROS Other: All systems not noted in ROS Statement are negative. Past Medical History Past Medical History: GERD/Reflux, Hyperlipidemia, Myocardial Infarction ([place]) Additional Past Medical History / Comment(s): aortic aneurysm-dr. shipley, hand tremors, Last Myocardial Infarction Date:: 1998 History of Any Multi-Drug Resistant Organisms: None Reported Past Surgical History: Heart Catheterization With Stent, Hernia Repair, Orthopedic Surgery Additional Past Surgical History / Comment(s): Lt Knee arthroscopy Past Anesthesia/Blood Transfusion Reactions: No Reported Reaction Date of Last Stent Placement:: 1998 Past Psychological History: No Psychological Hx Reported Smoking Status: Never smoker Past Alcohol Use History: None Reported Past Drug Use History: None Reported - Past Family History Mother Family Medical History: No Reported History General Exam - General Exam Comments Initial Comments: General: Appears in no acute distress. HEAD: Normal with no signs of head trauma. EYES: PERRLA, EOMI, conjunctiva normal, no discharge. ENT: Hearing grossly intact, normal oropharynx. RESPIRATORY: Clear breath sounds bilaterally. No wheezes, rales, or rhonchi. No hypoxia. No respiratory distress. C/V: Regular rate and rhythm. S1 and S2 auscultated, no edema, peripheral pulses 2+ and intact throughout ABD: Abd is soft, nontender, nondistended EXT: Normal range of motion, no obvious deformity SKIN: No rashes or lesions observed on exposed skin. NEURO: Alert and oriented x 4. Limitations: no limitations Course Vital Signs 03/04/23 05:58 Temperature 98.2 F Pulse Rate 60 Respiratory 18 Rate Blood Pressure 139/64 O2 Sat by Pulse 99 Oximetry Medical Decision Making - Medical Decision Making Was pt. sent in by a medical professional or institution (, PA, [employer], urgent care, hospital, or correction...) When possible be specific @ -No Did you speak to anyone other than the patient for history (EMS, parent, family, police, friend...)? What history was obtained from this source @ -No Did you review nursing and triage notes (agree or disagree)? Why? @ -I reviewed and agree with nursing and triage notes Were old charts reviewed (outside hosp., previous admission, EMS record, old EKG, old radiological studies, urgent care reports/EKG's, correction records)? Report findings @ -Old charts reviewed. Differential Diagnosis (chest pain, altered mental status, abdominal pain women, abdominal pain men, vaginal bleeding, weakness, fever, dyspnea, syncope, headache, dizziness, GI bleed, back pain, seizure, CVA, palpatations, mental health, musculoskeletal)? @ -Covid, flu, pneumonia, dehydration. This list is not all inclusive. EKG interpreted by me (3pts min.). @ -None done X-rays interpreted by me (1pt min.). @ -Chest x-ray reveals no obvious acute cardio pulmonary process. CT interpreted by me (1pt min.). @ -None done U/S interpreted by me (1pt. min.). @ -None done What testing was considered but not performed or refused? (CT, X-rays, U/S, labs)? Why? @ -None What meds were considered but not given or refused? Why? @ -None Did you discuss the management of the patient with other professionals (professionals i.e. , PA, [employer], lab, RT, psych nurse, social media community manager, sander wooden pencils, teacher, grant officer, correctional casework specialist)? Give summary @ -No Was smoking cessation discussed for >3mins.? @ -No Was critical care preformed (if so, how long)? @ -No Were there social determinants of health that impacted care today? How? (Homelessness, low income, unemployed, alcoholism, drug addiction, transportation, low edu. Level, literacy, decrease access to med. care, [facility], rehab)? @ -No Was there de-escalation of care discussed even if they declined (Discuss DNR or withdrawal of care, Hospice)? DNR status @ -No What co-morbidities impacted this encounter? (DM, HTN, Smoking, COPD, CAD, Cancer, CVA, ARF, Chemo, Hep., AIDS, mental health diagnosis, sleep apnea, mor bid obesity)? @ -None Was patient admitted / discharged? Hospital course, mention meds given and route, prescriptions, significant lab abnormalities, going to OR and other pertinent info. @ -Based on the patient's presentation and physical exam, I'm concerned for dehydration or Covid infection the patient. He did take a home test however we will repeat to ensure he does not have influenza superimposed on Covid or possible RSV. Also obtain a chest x-ray and basic labs. Patient was in agreement this plan. Vital signs are within acceptable limits. Patient will be given 500cc fluid bolus as well as a dose of Decadron. Chest x-ray shows no obvious acute cardio pulmonary process, focal infiltrate. Patient has some slight leukocytosis of 10. Patient's Covid positive. I did the patient. He'll be discharged home at this time. Discussed isolation precautions as well as strict return precautions. Recommended he follow up with his PCP. Discussed obtaining a pulse oximeter. Patient was in agreement this plan. Discussed she is outside of the window for antiviral therapy as it is day 6 of symptoms.. He expressed understanding. I instructed the patient to follow up with their PCP in the next 1-3 days. I explained that the patient should return to the emergency department if they experience any worsening symptoms. Strict return precautions were discussed with the patient. The patient expressed understanding of these instructions. I answered all questions that the patient had. The patient was discharged home in [good] condition with their prescriptions and follow up information. Undiagnosed new problem with uncertain prognosis? @ -No Drug Therapy requiring intensive monitoring for toxicity (Heparin, Nitro, Insulin, Cardizem)? @ -No Were any procedures done? @ -No Diagnosis/symptom? @ -COVID-19 infection Acute, or Chronic, or Acute on Chronic? @ -Acute Uncomplicated (without systemic symptoms) or Complicated (systemic symptoms)? @ -Complicated Side effects of treatment? @ -none Exacerbation, Progression, or Severe Exacerbation] @ -no Poses a threat to life or bodily function? @ -no - Lab Data Result diagrams: 03/04/23 06:24 03/04/23 06:24 Lab Results 03/04/23 03/04/23 03/04/23 Range/Units 06:24 06:24 06:24 WBC 10.9 H (3.8-10.6) k/uL RBC 4.13 L (4.30-5.90) m/uL Hgb 12.8 L (13.0-17.5) gm/dL Hct 38.6 L (39.0-53.0) % MCV 93.6 (80.0-100.0) fL MCH 31.1 (25.0-35.0) pg MCHC 33.2 (31.0-37.0) g/dL RDW 13.1 (11.5-15.5) % Plt Count 177 (150-450) k/uL MPV 8.5 Neutrophils % 54 % Lymphocytes % 34 % Monocytes % 6 % Eosinophils % 3 % Basophils % 1 % Neutrophils # 6.0 (1.3-7.7) k/uL Lymphocytes # 3.7 (1.0-4.8) k/uL Monocytes # 0.6 (0-1.0) k/uL Eosinophils # 0.3 (0-0.7) k/uL Basophils # 0.1 (0-0.2) k/uL Sodium 139 (137-145) mmol/L Potassium 4.9 (3.5-5.1) mmol/L Chloride 107 (98-107) mmol/L Carbon Dioxide 23 (22-30) mmol/L Anion Gap 9 mmol/L BUN 21 H (9-20) mg/dL Creatinine 1.06 (0.66-1.25) mg/dL Est GFR (CKD-EPI)AfAm 75 (>60 ml/min/1.73 sqM) Est GFR (CKD-EPI)NonAf 65 (>60 ml/min/1.73 sqM) Glucose 96 (74-99) mg/dL Calcium 8.8 (8.4-10.2) mg/dL Influenza Type A (PCR) Not Detected (Not Detectd) Influenza Type B (PCR) Not Detected (Not Detectd) RSV (PCR) Not Detected (Not Detectd) SARS-CoV-2 (PCR) Detected A (Not Detectd) Disposition Clinical Impression: COVID-19 virus infection Disposition: HOME SELF-CARE Condition: Good Instructions (If sedation given, give patient instructions): COVID-19 (Coronavirus Disease 2019) (ED) Is patient prescribed a controlled substance at d/c from ED?: No Referrals: Clif Dutta MD [Primary Care Provider] - 1-2 days Time of Disposition: 07:10
[2023-03-04 06:44] LABS: African American GFR (CKD) 75 (>60 ml/min/1.73 sqM); Anion Gap 9 mmol/L; Blood Urea Nitrogen 21 mg/dL (9-20); Calcium 8.8 mg/dL (8.4-10.2); Carbon Dioxide 23 mmol/L (22-30); Chloride 107 mmol/L (98-107); Glucose 96 mg/dL (74-99); Non-African American GFR(CKD) 65 (>60 ml/min/1.73 sqM); Sodium 139 mmol/L (137-145)
[2023-03-04 06:46] LABS: Potassium 4.9 mmol/L (3.5-5.1)
--- NOTE | 2023-03-04 07:02 | XR ---
EXAMINATION TYPE: XR chest 2V DATE OF EXAM: 03/04/2023 6:57 AM CLINICAL INDICATION:Male, 82 years old with history of cough; [facility] COMPARISON: Chest radiographs from 02/04/2021 TECHNIQUE: XR chest 2V Frontal and lateral views of the chest. FINDINGS: Lungs/Pleura: There is flattening of the diaphragm with increased lucency of the lungs. No evidence o f pneumothorax, pleural effusion or focal consolidation. Pulmonary vascularity: Unremarkable. Heart/mediastinum: Cardiomediastinal silhouette is unremarkable. Musculoskeletal: No acute osseous pathology. Other findings: None IMPRESSION: 1. No acute cardiopulmonary disease process. 2. COPD changes.
[2023-03-04 07:36] VITALS: BP 130/68; RESP 16
== END 2023-03-04 07:28 | disposition home or self-care (01) ==
LOC: EC 05:51
DX: U07.1 COVID-19 (principal); E78.5 Hyperlipidemia, unspecified; I25.2 Old myocardial infarction; J44.9 Chronic obstructive pulmonary disease, unspecified; K21.9 Gastro-esophageal reflux disease without esophagitis; Z79.82 Long term (current) use of aspirin; Z79.899 Other long term (current) drug therapy
CPT/HCPCS: 36415; 80048; 85025; 87636; 71046; 99284; 96360; J8540

== ENCOUNTER → 2023-10-16 | Outpatient (CLI) | payer MEDICARE | END | disposition home or self-care (01) | LOC: LABWHC1 08:56 | PROVIDERS: ATTEND Internal Medicine Interventional Cardiology | DX: I10 Essential (primary) hypertension (principal) | CPT/HCPCS: 36415; 80048; 83735 ==

== ENCOUNTER 2023-12-01 07:40 | Day surgery (SDC) | payer MEDICARE ==
--- NOTE | 2023-12-01 06:19 | P.GSHP ---
History of Present Illness H&P Date: 12/01/23 CHIEF COMPLAINT: Inguinal hernia, left HISTORY OF PRESENT ILLNESS: The patient is a 83-year-old male who presents with a history of swelling and pain along the left groin. He's noted increased swelling including pain of the area. Now he presents for repair of his inguinal hernia. PAST MEDICAL HISTORY: Please see list. PAST SURGICAL HISTORY: Please see list. MEDICATIONS: Please see list. ALLERGIES: Please see list. SOCIAL HISTORY: No illicit drug use FAMILY HISTORY: No reports of Crohn disease or ulcerative colitis. REVIEW OF ORGAN SYSTEMS: CONSTITUTIONAL: No reports of fevers or chills. No reports of weight loss despite prior attempts. GI: Denies any blood in stools. PHYSICAL EXAM: VITAL SIGNS: Stable GENERAL: Well-developed pleasant male in no acute distress. HEENT: No scleral icterus. Extraocular movements grossly intact. Moist buccal mucosa. NECK: Supple without lymphadenopathy. CHEST: Unlabored respirations. Equal bilateral excursions. CARDIOVASCULAR: Regular rate and rhythm. Distal 2+ pulses. ABDOMEN: Soft, nondistended. No peritoneal signs. Tender along left groin. MUSCULOSKELETAL: No clubbing, cyanosis, or edema. ASSESSMENT: 1. Inguinal hernia, left PLAN: 1. Recommend proceeding with a robotic inguinal repair with mesh with possible bilateral approach. 2. Benefits and risks of surgical intervention was discussed including possibility of open technique. 3. DVT prophylaxis. 4. Antibiotic prophylaxis. 5. Non narcotic pain management including abdominal wall block described 6. Blood sugar glucose described. 7. Weight loss management described. Past Medical History Past Medical History: Chest Pain / Angina, GERD/Reflux, Hyperlipidemia, Myocardial Infarction ([place]) Additional Past Medical History / Comment(s): aortic aneurysm-dr. shipley, hand tremors, Last Myocardial Infarction Date:: 1998 History of Any Multi-Drug Resistant Organisms: None Reported Past Surgical History: Appendectomy, Heart Catheterization With Stent, Hernia Repair, Orthopedic Surgery Additional Past Surgical History / Comment(s): Lt Knee arthroscopy, eye surgery, colonscopy Past Anesthesia/Blood Transfusion Reactions: No Reported Reaction Date of Last Stent Placement:: 1998 Smoking Status: Never smoker - Past Family History Mother Family Medical History: No Reported History Medications and Allergies Home Medications Medication Instructions Recorded Confirmed Type Nitroglycerin Sl Tabs [Nitrostat] 0.4 mg SUBLINGUAL Q5M PRN 06/27/15 11/27/23 History Fiber Tab 2 tab PO HS 06/28/15 11/27/23 History Multivitamins, Thera [Multivitamin 1 tab PO DAILY 06/28/15 11/27/23 History (formulary)] Propranolol [Inderal] 10 mg PO BID #60 tab 07/15/16 11/27/23 Rx Cholecalciferol [Vitamin D3 (25 50 mcg PO HS 02/04/21 11/27/23 History Mcg = 1000 Iu)] Omeprazole 20 mg PO DAILY 02/04/21 11/27/23 History Aspirin 81 mg PO HS 11/27/23 11/27/23 History Rosuvastatin [Crestor] 20 mg PO HS 11/27/23 11/27/23 History Allergies Allergy/AdvReac Type Severity Reaction Status Date / Time No Known Allergies Allergy Verified 11/27/23 14:14
[~2023-12-01 07:40] MED LIST changes: -LACTATED RINGERS 1,000 ML IV SCH
[2023-12-01 08:23] LABS: Basophils % (A) 1 %; Eosinophils # (A) 0.2 k/uL (0-0.7); Eosinophils % (A) 3 %; HCT 37.2 % (39.0-53.0); HGB 12.6 gm/dL (13.0-17.5); Lymphocytes % (A) 31 %; MCH 32.2 pg (25.0-35.0); MCHC 33.9 g/dL (31.0-37.0); Mean Platelet Volume 7.1; Monocytes # (A) 0.5 k/uL (0-1.0); Monocytes % (A) 8 %; Neutrophils # (A) 3.5 k/uL (1.3-7.7); Neutrophils % (A) 55 %; Platelet Count 210 k/uL (150-450); RBC 3.92 m/uL (4.30-5.90); RDW 13.3 % (11.5-15.5); WBC 6.4 k/uL (3.8-10.6)
[2023-12-01] MEDS: ACETAMINOPHEN TAB 500 MG TAB PO PRN (08:26)
[2023-12-01] MEDS: TAMSULOSIN 0.4 MG CAP.ER.24H PO STA (08:26)
[2023-12-01] MEDS: ONDANSETRON 4 MG/2 ML VIAL IVP ONE (08:26)
[2023-12-01] MEDS: MELOXICAM 7.5 MG TAB PO PRN (08:26)
[2023-12-01] MEDS: LACTATED RINGERS 1,000 ML IV SCH (08:27)
[2023-12-01 08:33] LABS: Partial Thromboplastin Time 23.3 sec (22.0-30.0)
[2023-12-01] MEDS: IV FLUID CONTINUATION 1,000 ML IV ONE (08:40)
[2023-12-01 09:13] LABS: ALT 13 U/L (4-49); AST 22 U/L (17-59); African American GFR (CKD) 64 (>60 ml/min/1.73 sqM); Albumin 3.3 g/dL (3.5-5.0); Alkaline Phosphatase 49 U/L (38-126); Anion Gap 5 mmol/L; Blood Urea Nitrogen 18 mg/dL (9-20); Calcium 9.1 mg/dL (8.4-10.2); Carbon Dioxide 24 mmol/L (22-30); Chloride 111 mmol/L (98-107); Glucose 97 mg/dL (74-99); Non-African American GFR(CKD) 55 (>60 ml/min/1.73 sqM); Potassium 3.8 mmol/L (3.5-5.1); Sodium 140 mmol/L (137-145); Total Bilirubin 0.6 mg/dL (0.2-1.3); Total Protein 6.2 g/dL (6.3-8.2)
[2023-12-01 09:19] LABS: INR 1.1 (<1.2); Prothrombin Time 11.4 sec (10.0-12.5)
[2023-12-01] MEDS: MIDAZOLAM 2 MG/2 ML VIAL IVP ONE (09:23)
[2023-12-01] MEDS: ONDANSETRON 4 MG/2 ML VIAL IVP PRN (09:26)
--- NOTE | 2023-12-01 09:51 | P.ANPRN ---
Procedure Note - Anesthesia - Nerve Block Performed Bilateral Erector Spinae Single Time Out Performed: Yes Date of Procedure: 12/01/23 Procedure Start Time: Procedure Stop Time: Location of Patient: PreOp Indication: Acute Post-Operative Pain, Analgesia, Requested by Surgeon Sedation Type: Sedate with meaningful contact maintained Preparation: Sterile Prep Position: Prone Catheter: None Needle Types: Pajunk Needle Gauge: 21 Ultrasound used to visualize needle placement: Yes Ultrasound used to observe medication spread: Yes Injectate: 0.5% Ropivacaine (see comment for volume) (Ropiv 20ml+Decadron 4mg--Each side. Needle level T11.) Blood Aspirated: No Pain Paresthesia on Injection Noted: No Resistance on Injection: Normal Image Stored and Saved: Yes Events: Uneventful and Well Tolerated
[2023-12-01] MEDS: HEPARIN SODIUM,PORCINE 5,000 UNIT/ML 1 ML VIAL SQ PRN (10:01)
[2023-12-01] MEDS ORDERED: ROCURONIUM 10 MG/ML (5 ML VIAL) IV ONE (10:08)
[2023-12-01] MEDS ORDERED: ePHEDrine 50 MG/ML 1 ML VIAL ONE (10:08)
[2023-12-01] MEDS ORDERED: PROPOFOL 10 MG/ML 20 ML VIAL IV ONE (10:08)
[2023-12-01] MEDS ORDERED: LIDOCAINE 1% INJ 10MG/ML (20 ML MDV) ONE (10:08)
[2023-12-01] MEDS ORDERED: fentaNYL (PF) 50 MCG/ML 2 ML AMP ONE (10:08)
[2023-12-01] MEDS ORDERED: SUCCINYLCHOLINE CHLORIDE 200 MG/10 ML VIAL IV ONE (10:08)
[2023-12-01] MEDS ORDERED: DEXAMETHASONE SOD PHOSPHATE 4 MG/ML 1 ML VIAL ONE (10:08)
[2023-12-01] MEDS ORDERED: ROPIVACAINE 5 MG/ML 30 ML VIAL ONE (10:08)
[2023-12-01] MEDS ORDERED: SUGAMMADEX SODIUM 200 MG/2 ML SDV IV ONE (10:08)
[2023-12-01] MEDS: LIDOCAINE 1%-EPI 1:100,000 20 ML VIAL SQ ONE ×2 (10:45→10:51)
[2023-12-01] MEDS: LACTATED RINGERS 1,000 ML IV ONE (11:03)
--- NOTE | 2023-12-01 11:54 | P.OP ---
Date of Procedure: 12/01/23 Description of Procedure: SURGEON: SARAH LUCERO MD PREOPERATIVE DIAGNOSES: 1. Left inguinal pain 2. Left lower quadrant abdominal pain 3. Abdominal aortic aneurysm POSTOPERATIVE DIAGNOSES: 1. Left inguinal pain/left lower quadrant abdominal pain due to pelvic peritoneal adhesions 2. Left lower quadrant abdominal pain 3. Abdominal aortic aneurysm OPERATION: 1. Robotic-assisted da Zoila Xi laparoscopic with lysis of adhesions ESTIMATED BLOOD LOSS: 5 mL. SPECIMENS REMOVED: None. COMPLICATIONS: None. OPERATIVE FINDINGS: 1. Moderate intra-abdominal adhesions 2. Moderate pelvic adhesions involving the left groin and sigmoid colon due to diverticulosis 3. Right indirect inguinal hernia asymptomatic 4. Patient marked abdomen at location of pain consistent with adhesions INDICATIONS: The patient is a 83-year-old male who presents pain and tenderness along the left groin. He has pre-existing history of inguinal hernia repairs done open technique. Surgical intervention with diagnostic laparoscopy, lysis of adhesions and possible left inguinal hernia repair were described. Informed consent was obtained. Robotic assisted laparoscopic approach was described. Benefits and risks of the procedure including but not limited to bleeding, infection was described. Informed consent was obtained. DESCRIPTION OF PROCEDURE: Patient was brought to the operating room, placed in supine position. After general induction, the abdomen had been prepped and draped in standard sterile fashion. The robotic da Zoila XI system was primed. After a timeout protocol was performed, the patient had been prepped and draped in standard sterile fashion. The robot was docked along the left lateral abdomen. Please note prior to docking of the robot; however, a 5 mm 0 degrees laparoscopic trocar entry was performed along the left upper quadrant. Next, three 8 mm robotic ports were placed along the left lateral abdominal wall abdomen. Trochars were placed at least 10 to 15 cm away from the target anatomy. Instruments including graspers and scissors with cautery were interchanged by the nursing assistants teacher. I had sat at the console. Moderate pelvic adhesions along the left groin including small bowel to the abdominal wall was found. Blunt dissection including sharp dissection using scissors and Bovie cautery was used releasing adhesions from the left groin and left pelvis. Multiple interloop adhesions were also identified where the small bowel was adherent to the colon. Features of diverticulosis without active diverticulitis was found. Adhesions and interloop were taken down using combination of scissors as well as vessel sealer. No recurrent inguinal hernia along the right groin was identified. Hemostasis was checked. The sigmoid colon was highly redundant. No large or small bowel obstruction was identified. The robot was undocked. All pneumoperitoneum and instruments were evacuated from the abdominal cavity. The incisions were reapproximated using 4-0 Monocryl in an interrupted subcuticular fashion. Please note along the trocar sites, local anesthetic was placed as a field block prior to insertion of all instruments. Exofin was applied to the skin. At the end of the procedure needle, sponge, and instrument count had been verified correct by the surgical services assistant. The patient was transferred to postanesthesia care unit in stable condition. Plan - Discharge Summary Discharge Rx Participant: No New Discharge Prescriptions: New Simethicone [Gas-X] 125 mg PO AC-TID PRN #20 capsule PRN Reason: Pain Acetaminophen Tab [Tylenol Tab] 1,000 mg PO Q6HR PRN #30 tablet PRN Reason: Pain Continue Nitroglycerin Sl Tabs [Nitrostat] 0.4 mg SUBLINGUAL Q5M PRN PRN Reason: Chest Pain Multivitamins, Thera [Multivitamin (formulary)] 1 tab PO DAILY Fiber Tab 2 tab PO HS Propranolol [Inderal] 10 mg PO BID #60 tab Cholecalciferol [Vitamin D3 (25 Mcg = 1000 Iu)] 50 mcg PO HS Omeprazole 20 mg PO DAILY Aspirin 81 mg PO HS Rosuvastatin [Crestor] 20 mg PO HS Discharge Medication List Nitroglycerin Sl Tabs [Nitrostat] 0.4 mg SUBLINGUAL Q5M PRN 06/27/15 [History] Fiber Tab 2 tab PO HS 06/28/15 [History] Multivitamins, Thera [Multivitamin (formulary)] 1 tab PO DAILY 06/28/15 [History] Propranolol [Inderal] 10 mg PO BID #60 tab 07/15/16 [Rx] Cholecalciferol [Vitamin D3 (25 Mcg = 1000 Iu)] 50 mcg PO HS 02/04/21 [History] Omeprazole 20 mg PO DAILY 02/04/21 [History] Aspirin 81 mg PO HS 11/27/23 [History] Rosuvastatin [Crestor] 20 mg PO HS 11/27/23 [History] Acetaminophen Tab [Tylenol Tab] 1,000 mg PO Q6HR PRN #30 tablet 12/01/23 [Rx] Simethicone [Gas-X] 125 mg PO AC-TID PRN #20 capsule 12/01/23 [Rx] Follow up Appointment(s)/Referral(s): Sarah Lucero MD [STAFF PHYSICIAN] - 12/05/23 6:00 pm (TELEHEALTH) Patient Instructions/Handouts: Lysis of Abdominal Adhesions (GEN) Activity/Diet/Wound Care/Special Instructions: TELEHEALTH - DR WILL CALL YOU BETWEEN 9 am to 8 pm NO LONG DRIVES OR AIRPLANE RIDES OVER 30 MINUTES FOR THE NEXT 2 WEEKS DUE TO HIGH RISK OF PULMONARY EMBOLISM/DVTs, DEC 14 No lifting over 10 pounds in 2 weeks until DEC 14July shower. No bath tub soaks for two weeks until DEC 14 Diet as tolerated. Use Tylenol, simethicone and ibuprofen or Aleve scheduled for the next 24-48 hours for best pain relief. Use ice along incisions for today to prevent swelling. Discharge Disposition: HOME SELF-CARE
[2023-12-01 11:58] VITALS: TEMP 97
[2023-12-01] MEDS: HYDROmorphone 0.5 MG/0.5 ML SYRINGE IVP PRN (12:16)
[2023-12-01 13:14] VITALS: RESP 17
[2023-12-01 13:45] VITALS: BP 124/58; PULSE 58
== END 2023-12-01 14:17 | disposition home or self-care (01) ==
LOC: OR 07:40
PROVIDERS: ATTEND Surgery Plastic and Reconstructive Surgery
DX: K40.90 Unilateral inguinal hernia, without obstruction or gangrene, not specified as recurrent
CPT/HCPCS: 64999; 80053; 85025; 85610; 85730

== ENCOUNTER → 2024-05-24 | Outpatient (CLI) | payer MEDICARE ==
--- NOTE | 2024-05-24 12:07 | FL ---
EXAMINATION TYPE: FL barium swallow DATE OF EXAM: 05/24/2024 COMPARISON: NONE CLINICAL INDICATION: Male, 83 years old with history of R13.10 DYSPHAGIA, tightness and burning sensa tion with difficulty clearing throat for one month. TECHNIQUE: A double contrast esophagram is performed utilizing air and barium. A total of 32 second s of fluoroscopic time was utilized during procedure and 68 images obtained. TOTAL DAP = 388.35 FINDINGS: The esophagus shows normal motility and emptying into the stomach. No evidence of fixed hi atal hernia or stricture noted. Along the right aspect of the mid esophagus there is a small outpouch ing or diverticulum measuring just under one vertebral body height on longest axis. Estimated 3 to 4 cm. No significant gastroesophageal reflux was seen during real time performance of this study. 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 [facility], , 05/24/2024 12:05 PM
== END | disposition home or self-care (01) ==
LOC: RADFLMAIN 10:15
PROVIDERS: ATTEND Otolaryngology
DX: Q39.6 Congenital diverticulum of esophagus (principal)
CPT/HCPCS: 74220